=== PATIENT | male | born 1970 ===

== ENCOUNTER 2016-12-28 08:50 | Inpatient (IN) ==
--- NOTE | 2016-12-28 12:03 | Emergency Department Note ---
Arrival - Arrival Chief Complaint: Headache Stated Complaint: Neuro transfer ED Nursing Triage Note: Headache present for the past 4 days that has progressively gotten worse. Mode of Arrival: Stretcher Limitations: No Limitations Source: Patient Time Seen by Provider: 12/28/16 12:00 - History of Present Illness HPI Narrative: This 46-year-old Kay male presents on transfer from [facility] where he presented earlier this morning with a 3 day history of severe headache on the crown of the head. During his workup it flared it was found that he had a recent large right middle cerebral infarct as well as a recent right arielle infarct. The patient and the family both state he has not had any slurring of speech, focal deficits, vomiting, diaphoresis, shortness of breath, chest pain, or complaints of photophobia. He does complain of a low-grade nausea for the last 3 days. His most pressing complaint is again his headache, being otherwise medically stable. Onset (ago): day(s) Home Medications: Home Medications Medication Instructions Recorded Confirmed Type Lisinopril 20 mg PO BID 12/28/16 12/28/16 History amLODIPine [Norvasc] 5 mg PO DAILY 12/28/16 12/28/16 History metFORMIN [Glucophage] 500 mg PO DAILY 12/28/16 12/28/16 History Review of System - Review of System 12 point system: reviewed and no additional remarkable complaints except as stated - Review of System Constitutional: Present: as per HPI Respiratory: Present: as per HPI Cardiovascular: Present: as per HPI Gastrointestinal: Present: as per HPI Neurological: Present: as per HPI Medical,Surgical,& Family Hx - Medical History Cardio: History of: Hypertension Endocrine: History of: Diabetes Mellitus (NIDDM) - Surgical History Thoracic Surgeries: Patient denies;: Organ Transplant - Social History Smoking Status: Smoker, status unknown Frequency of Alcohol Use: None Type of Drug Use: None Exam Physical Examination: GENERAL: Well developed, well nourished male in no acute distress. HEENT: Normocephalic. No trauma. Moist mucous membranes. EOMI. PERRLA. ENT NML NECK: Supple. No adenopathy. CARDIAC: Regular. No murmurs. Heart rate 75 CHEST: Clear to auscultation. No respiratory distress. O2 sat 100% ABDOMEN: Soft. Nontender. Active bowel sounds. EXTREMITIES: No trauma. Normal ROM. No pedal edema. SKIN: No diaphoresis. No rash. NEURO: Alert. Oriented 3. Motor, sensory, vibratory intact. No focal deficits. Vital Signs: Vital Signs Temperature 98 F 12/28/16 09:00 Pulse Rate 67 12/28/16 11:08 Respiratory Rate 26 H 12/28/16 11:08 Blood Pressure 196/101 12/28/16 11:08 O2 Sat by Pulse Oximetry 100 12/28/16 11:08 Course - Reevaluation(s) Reevaluation #1: Discussed with patient need for hospitalization given his evidence of recent stroke - Consultations Consultation #1: Discussed with hospitalist service who will admit for further evaluation treatment. Disposition Clinical Impression: Acute right arterial ischemic stroke, middle cerebral artery (MCA), Right pontine stroke, Hypertension Case discussed with: patient, patient's family Disposition: Still a Patient Condition: Guarded Time of Disposition: 12:10
[2016-12-28] MEDS ORDERED: hydrALAZINE 20 MG/1 ML VIAL IV STA (12:07)
--- NOTE | 2016-12-28 12:25 | XRay Report ---
XR chest 1V portable Indication: SOB Comparison: Chest x-ray dated September 09, 2014 Technique: Single frontal view of the chest. Findings: The cardiomediastinal silhouette is stable in configuration. No focal consolidation, pleural effusion, or pneumothorax. Visualized osseous and surrounding soft tissue structures appear grossly unchanged. IMPRESSION: No acute cardiopulmonary process demonstrated. PROCEDURE INTERPRETED AT [facility] DEPARTMENT OF RADIOLOGY Final Report Signed by: Dr Fredrick Brown
--- NOTE | 2016-12-28 12:26 | Hospitalist History & Physical ---
Assessment and Plan - Time spent with patient Time spent with patient: Less than 30 minutes (1) Hypertension Status: Acute Assessment and plan: Grossly hypertensive at the time of admission; we will oral agents and manage. The patient has a known diagnosis; however reports medication non-compliance for the past two years. We will obtain echo and renal ultrasound to assess for target organ damage. (2) Diabetes mellitus Status: Acute Assessment and plan: Will obtain HGA1C and start accuchecks with ss coverage. (3) Acute right arterial ischemic stroke, middle cerebral artery (MCA) Status: Acute Assessment and plan: Will consult Neurology; perform full neuro work-up. Will order MRI. (4) Right pontine stroke Status: Acute Assessment and plan: Will consult Neurology; perform full neuro work-up. Will order MRI. (5) Acute kidney injury Status: Acute Assessment and plan: Creatinine 3.0 at the time of admission. I suspect that have some renal involvement due to his non-compliance with his HTN/DM. We will continue to monitor. Re-check labs in AM. History of Present Illness Chief complaint: CVA History of present illness: This is a very pleasant 46 year old male that presented to the ED at [facility] as a lateral transfer from [facility] for evaluation of confirmed cerebral vascular accident. The patient has a medical history significant for hypertension, diabetes, and hyperlipidemia. The patient has a surgical history of laser eye surgery. The patient reported gradual onset of a headache which started 3 days prior presentation. He reported that the headache started in the crown of his head and gradually worsened. He also reported intermittent nausea during this period. At [place], a full neurological work-up was ordered. CT Head revealed large middle right cerebral infarct as well as recent right arielle infarct. The patient was subsequently transferred to [facility] for further evaluation. Home Medications Medication Instructions Recorded Confirmed Type Lisinopril 20 mg PO BID 12/28/16 12/28/16 History amLODIPine [Norvasc] 5 mg PO DAILY 12/28/16 12/28/16 History metFORMIN [Glucophage] 500 mg PO DAILY 12/28/16 12/28/16 History Allergies Allergy/AdvReac Type Severity Reaction Status Date / Time No Known Allergies Allergy Unverified 12/28/16 12:35 Medical,Surgical,& Family Hx - Medical History Cardio: History of: Hypertension Endocrine: History of: Diabetes Mellitus (NIDDM) - Surgical History Thoracic Surgeries: Patient denies;: Organ Transplant - Social History Smoking Status: Former smoker Frequency of Alcohol Use: None Type of Drug Use: None Marital Status: Lives With:: Spouse Functional capacity: independent ambulation 12 point system: reviewed and no additional remarkable complaints except as stated Exam - Constitutional Vitals: Period Temp Pulse Resp BP Sys/Toscano Pulse Ox Last 24 Hr 98 F-98.0 F 67-75 18-26 196-220/101-114 100-100 General appearance: over weight - Head Head exam: Present: normal inspection, normocephalic, atraumatic - Eye Eye exam: Present: EOMI, conjunctival injection Pupils: Present: FAMILIA, normal accommodation - ENT ENT exam: Present: normal exam, normal external ear exam, normal oropharynx - Neck Neck exam: Present: normal inspection. Absent: lymphadenopathy, meningismus, tenderness, thyromegaly - Respiratory Respiratory exam: Present: clear to auscultation bilaterally. Absent: rales, rhonchi, stridor, wheezes - Cardiovascular Cardiovascular exam: Present: regular rate and rhythm. Absent: carotid bruit, diastolic murmur, gallop, JVD, rubs, systolic murmur - GI/Abdominal GI/Abdominal exam: Present: normal bowel sounds, soft - Extremities Exam Extremities exam: Present: normal inspection, full ROM. Absent: edema - Back Exam Back exam: Present: normal inspection - Neurological Exam Neurological exam: Present: alert, oriented X3, CN II-XII intact - Psychiatric Psychiatric exam: Present: normal affect, normal mood - Skin Skin exam: Present: normal color, warm, dry Results - Labs Lab Results: I have reviewed the past 24 hour labs Labs: Labs from [place] reviewed; Potassium of 2.9 and Creatinine of 3.1 Quality Measures - Stroke Onset of Symptoms Date: 12/24/16
[2016-12-28] MEDS ORDERED: hydrALAZINE 20 MG/1 ML VIAL ONE (12:29)
[2016-12-28] MEDS ORDERED: HYDROmorphone 2 MG/1 ML VIAL IV STA (12:35)
[2016-12-28] MEDS ORDERED: ONDANSETRON 4 MG/2 ML VIAL IV STA (12:36)
[2016-12-28] MEDS ORDERED: HYDROmorphone 2 MG/1 ML VIAL ONE (12:37)
[2016-12-28] MEDS ORDERED: ONDANSETRON 4 MG/2 ML VIAL ONE (12:37)
--- NOTE | 2016-12-28 12:40 | EKG Report ---
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
--- NOTE | 2016-12-28 13:23 | Ultrasound Report ---
US renal Bilateral Indication: Hypertension. Comparison: None. Technique: Multiple longitudinal and transverse real-time sonographic images of the kidneys are obtained. Findings: The right kidney measures 12.1 cm, and the left kidney measures 11.6 cm. There is no evidence of hydronephrosis. IMPRESSION: Unremarkable renal ultrasound. PROCEDURE INTERPRETED AT [facility] DEPARTMENT OF RADIOLOGY Final Report Signed by: Dr Fredrick Brown
[2016-12-28 13:34] LABS: PT Patient Result 10.3 SECS; Partial Thromboplastin Time 32.2 SECS (0-40)
[2016-12-28 13:44] LABS: Troponin I Only < 0.015 NG/ML (0.00-0.045)
[2016-12-28 13:45] LABS: CKMB % 3.5 %
[2016-12-28 13:54] LABS: Risk Ratio 8.74; VLDL CHOLESTEROL 55.6 MG/DL
[2016-12-28] MEDS ORDERED: hydrALAZINE 20 MG/1 ML VIAL IV PRN (14:53)
[2016-12-28] MEDS ORDERED: ONDANSETRON 4 MG/2 ML VIAL IV PRN (14:53)
[2016-12-28] MEDS ORDERED: DOCUSATE SODIUM 100 MG CAPSULE PO PRN (14:53)
[2016-12-28] MEDS ORDERED: LABETALOL 20 MG/4 ML SYRINGE IV PRN (14:53)
[2016-12-28] MEDS ORDERED: ZALEPLON 5 MG CAPSULE PO PRN (14:53)
[2016-12-28] MEDS ORDERED: GLUCAGON 1 MG VIAL IM PRN ×2 (14:53)
[2016-12-28] MEDS ORDERED: DEXTROSE 50% 25 GM/50 ML VIAL IV PRN ×2 (14:53)
[2016-12-28] MEDS ORDERED: PNEUMOCOCCAL VACCINE (23 VALENT) 0.5 ML VIAL IM ONE (15:11)
--- NOTE | 2016-12-28 15:59 | Ultrasound Report ---
US carotid duplex BI Indication: CVA. Comparison: None. Technique: Multiple longitudinal and transverse real-time sonographic images of the bilateral carotid arterial systems are obtained with grayscale, spectral, and color Doppler analysis. Findings: Peak systolic velocities within the right CCA, proximal ICA, and distal ICA are 67, 29, and 32 cm/s respectively. Peak systolic velocities within the left CCA, proximal ICA, and distal ICA are 87, 95, and 47 cm/s respectively. ICA/CCA ratios on the right and left are 0.5 and 1.1 respectively. Antegrade flow demonstrated within the bilateral vertebral arteries. Grayscale imaging demonstrates mild to moderate bilateral atherosclerotic plaque. IMPRESSION: No convincing sonographic evidence of significant (50% or greater) narrowing of either cervical internal carotid artery. Indirect NASCET criteria utilized. PROCEDURE INTERPRETED AT [facility] DEPARTMENT OF RADIOLOGY Final Report Signed by: Dr Fredrick Brown
--- NOTE | 2016-12-28 16:05 | XRay Report ---
XR skull <4V AP/LAT Indication: MRI clearance. Skull 3 views: Metallic surgical hardware lines the floor and medial wall of the left orbit and is of unknown composition. Metallic dentition is present as well. No other metallic foreign objects are seen. Impression: Strict contraindication to MRI with metallic hardware lining the floor of the left orbit and medial wall of unknown composition. Even if MR-compatible, suspect the degree of artifact will render MR brain severely degraded. PROCEDURE INTERPRETED AT [facility] DEPARTMENT OF RADIOLOGY Final Report Signed by: Vance Buckner M.D.
[2016-12-28] MEDS: INSULIN LISPRO 100 UNIT/ML SUBCUT SCH ×2 (16:15→21:17)
[2016-12-28] MEDS: ENOXAPARIN 30 MG/0.3 ML SYRINGE SUBCUT SCH (16:15)
--- NOTE | 2016-12-28 17:04 | ECHO Report ---
Raheem Campuzano 12/28/2016 Exam Date: 14:22 Referring Physician: Princess Yo Technologist: ANGEL Age: 46 Ht (in): 69 Wt (lb): 230 MExam Location: [facility] Gender: Echo [id number]: HTN, DM, Acute kidney injuryIndications: BP: 145 / 79 HR: 75 SinusRhythm: GoodTechnical Quality: IMPRESSIONS Left ventricular ejection fraction is estimated at 60 %. Moderate concentric left ventricular hypertrophy with grade I diastolic dysfunction. Tricuspid regurgitation velocities suggest a RVSP of 28 mmHg plus the right atrial pressure. MEASUREMENTS (Male / Female) Normal Values 2D ECHO LV Diastolic Diameter PLAX 4.9 cm 4.2 - 5.9 / 3.9 - 5.3 cm LV Systolic Diameter PLAX 2.9 cm LV Fractional Shortening PLAX 41.7 % IVS Diastolic Thickness 1.9 cm 0.6 - 1.0 / 0.6 - 0.9 cm LVPW Diastolic Thickness 1.5 cm 0.6 - 1.0 / 0.6 - 0.9 cm RV Internal Dim ED PLAX 3.1 cm Aortic Root Diameter 3.0 cm LA Systolic Diameter LX 3.8 cm 3.0 - 4.0 / 2.7 - 3.8 cm DOPPLER TR Peak Velocity 263.0 cm/s TR Peak Gradient 27.7 mmHg FINDINGS Left Ventricle Moderate concentric left ventricular hypertrophy with grade I diastolic dysfunction. Left ventricular ejection fraction is estimated at 60 %. Right Ventricle Normal right ventricular size and systolic function. Right Atrium Normal right atrial size. Left Atrium Normal left atrial size. Mitral Valve Mild mitral valve sclerosis. Mild mitral valve regurgitation. Aortic Valve Mild aortic valve sclerosis. Tricuspid Valve Morphologically normal tricuspid valve. [id number]-up-[id number] tricuspid valve regurgitation. Tricuspid regurgitation velocities suggest a RVSP of 28 mmHg plus the right atrial pressure. Pulmonic Valve Morphologically normal pulmonic valve. Trace pulmonary valve regurgitation. Pericardium No pericardial effusion. Aorta Normal size aortic root and proximal ascending aorta. Betty Butler (Electronically Signed) 28 Dec 2016 17:03Final Date:
[2016-12-28] MEDS: ATORVASTATIN 40 MG TABLET PO SCH (21:16)
[2016-12-28] MEDS: CARVEDILOL 3.125 MG TABLET PO SCH (21:17)
[2016-12-28] MEDS: ACETAMINOPHEN 325 MG TABLET PO PRN (21:17)
[2016-12-29] MEDS: ACETAMINOPHEN 325 MG TABLET PO PRN ×3 (04:28→19:24)
[2016-12-29 05:56] LABS: Calcium 6.9 MG/DL (8.5-10.1); Osmolality,Calculated 280.5 MOS/KG (273-304); Potassium 3.1 MMOL/L (3.5-5.1); Thyroid Stimulating Hormone 3.08 uIU/ml (0.358-3.74)
[2016-12-29] MEDS: INSULIN LISPRO 100 UNIT/ML SUBCUT SCH ×4 (07:19→20:40)
[2016-12-29] MEDS ORDERED: amLODIPine 2.5 MG TABLET PO SCH (09:00)
[2016-12-29] MEDS: CARVEDILOL 3.125 MG TABLET PO SCH (09:31)
[2016-12-29] MEDS: PANTOPRAZOLE 40 MG TABLET PO SCH (09:31)
[2016-12-29] MEDS ORDERED: POTASSIUM CHLORIDE 20 MEQ TABLET PO ONE (14:28)
[2016-12-29] MEDS ORDERED: LISINOPRIL 20 MG TABLET PO SCH (14:30)
[2016-12-29] MEDS ORDERED: metFORMIN 500 MG TABLET PO SCH (14:30)
[2016-12-29] MEDS ORDERED: amLODIPine 5 MG TABLET PO SCH (14:30)
--- NOTE | 2016-12-29 14:31 | Hospitalist Progress Note ---
Assessment and Plan (1) Acute right arterial ischemic stroke, middle cerebral artery (MCA) Status: Acute Assessment and plan: 1)stroke- subacute to chronic without need for rehab. Treat contributing diagnoses- increased Norvasc for HTN and started lipitor for cholesterol. on SSI for diabetes. begin asa. echo with EF 60% grade I diastolic dysfunction. Carotids ok. 2)LUCERO v CKD- BUN not elevated, may be more chronic. Recheck in am. IVF. 3)HTN 4)High cholesterol 5)DM- hgba1c is 7.7. no more metformin because his creatinine is too high. SSI. 6)low potassium- replace po. 7)hypocalcemia- check albumin. Current Visit: Yes (2) Hypercholesterolemia Status: Acute Current Visit: Yes (3) Hypertension Status: Acute Current Visit: Yes (4) Diabetes mellitus Status: Acute Current Visit: Yes (5) Acute kidney injury Status: Acute Current Visit: Yes Hospitalist: Subjective Interval history: Mr Campuzano is asking to be discharged. He does not have any neuro deficit. He had no idea he had had a stroke. He still has a dull headache. He is cooperating with Pt and has equal strength bilaterally in his extremities. He used to take meds for HTN and high cholesterol and diabetes. Exam - Constitutional Vitals: Period Temp Pulse Resp BP Sys/Toscano Pulse Ox Last 24 Hr 97.2 F-98.5 F 66-79 18-22 112-171/64-97 97-99 General appearance: no acute distress, over weight - Head Head exam: Present: normocephalic, atraumatic - Eye Eye exam: Present: EOMI. Absent: scleral icterus - Respiratory Respiratory exam: Present: clear to auscultation bilaterally - Cardiovascular Cardiovascular exam: Present: regular rate and rhythm - GI/Abdominal GI/Abdominal exam: Present: normal bowel sounds, soft. Absent: tenderness - Extremities Exam Extremities exam: Absent: edema Results - Labs CBC & BMP: 12/29/16 04:41 Lab Results: I have reviewed the past 24 hour labs (carotid dopplers- no sig stenosis; echo-EF 60% with grade 1 diastolic dysfunction) Quality Measures - Stroke Onset of Symptoms Date: 12/24/16
[2016-12-29] MEDS: amLODIPine 5 MG TABLET PO SCH (14:45)
[2016-12-29] MEDS: CARVEDILOL 12.5 MG TABLET PO SCH ×2 (14:48→20:39)
[2016-12-29] MEDS: ENOXAPARIN 30 MG/0.3 ML SYRINGE SUBCUT SCH (14:49)
--- NOTE | 2016-12-29 15:10 | Neurology Consult Note ---
History of Present Illness History of present illness: This is a 46 year old gentleman that presented to the ED at [facility] as a lateral transfer from [facility] for evaluation of confirmed cerebral vascular accident. The patient has a medical history significant for hypertension, diabetes, and hyperlipidemia. The patient has a surgical history of laser eye surgery. The patient reported gradual onset of a headache which started 3 days prior presentation. He reported that the headache started in the crown of his head and gradually worsened. He also reported intermittent nausea during this period. At [place], CT Head revealed large middle right cerebral infarct as well as recent right arielle infarct. The patient was subsequently transferred to [facility] for further evaluation. Do not have that report available. Carotid ultrasound is unremarkable. Echo showed ejection fraction of 60%. Cholesterol is 376, triglycerides are 278 Home Medications Medication Instructions Recorded Confirmed Type Lisinopril 20 mg PO BID 12/28/16 12/28/16 History amLODIPine [Norvasc] 5 mg PO DAILY 12/28/16 12/28/16 History metFORMIN [Glucophage] 500 mg PO DAILY 12/28/16 12/28/16 History Allergies Allergy/AdvReac Type Severity Reaction Status Date / Time No Known Allergies Allergy Unverified 12/28/16 12:35 12 point system: reviewed and no additional remarkable complaints except as stated Medical,Surgical,& Family Hx - Medical History Cardio: History of: Hypertension Endocrine: History of: Diabetes Mellitus (NIDDM) - Surgical History Cardiac Surgeries: Patient Denies: Cardiac Catheterization Thoracic Surgeries: Patient denies;: Organ Transplant - Social History Smoking Status: Former smoker Frequency of Alcohol Use: None Type of Drug Use: None Exam - Constitutional Vitals: Period Temp Pulse Resp BP Sys/Toscano Pulse Ox Last 24 Hr 97.3 F-98.5 F 66-79 18-22 112-171/64-96 97-99 Exam: GENERAL: Patient is in no acute distress. NECK: Neck is supple. There is no JVD. No carotid bruits present. No thyroid masses. CVS: First and second heart sounds are normal. There is no S3 present. Regular rate and rhythm. RESPIRATORY: Lungs are clear to auscultation without any rales or rhonchi. ABDOMEN: Soft and non-tender. Bowel sounds are present. There is no hepatosplenomegaly. EXT: There is no palpable edema. Peripheral pulses are present. Skin: No rashes Central Nervous system: General: Alert, awake and Oriented x 3 Speech: Fluent Comprehension: Intact and normal Facial expressions: Normal Cranial Nerves: CN1/Olfactory: Normal CN II/ Optic: Normal, Visual Acuña unreliable CN III, and : FAMILIA & EOMI CN V: Normal & intact CN VII: face is symmetric CNVIII: Normal CN XI/X/XI/XII: Intact and Normal Motor: Bulk and Tone is normal. Strength in the right 5/5 Strength in the left 5/5 Sensory: Decreased for all the modalities of PP, LT and temp sense Reflexes: 1+ and symmetrical Cerebellar function: Normal finger to nose and heel to castle testing. Toes: Equivocal Gait: Slightly broad-based gait but able to walk independently Results - Labs CBC & BMP: 12/29/16 04:41 Assessment and Plan (1) Headache Status: Acute Assessment and plan: Nonspecific. Patient does not have any more headaches. No more weakness reported. I do not believe he had a stroke. Neuro exam is negative. MRI cannot be done due to some metal behind the right eye. Start and continue aspirin a day Agree with Lipitor No further intervention needed from neuro standpoint Sign off please call as needed Current Visit: Yes
[2016-12-29] MEDS: ATORVASTATIN 40 MG TABLET PO SCH (20:40)
[2016-12-29 22:55] LABS: Protein/Creatinine Ratio,Urine 15.1 RATIO
[2016-12-30 04:58] LABS: Calcium 6.9 MG/DL (8.5-10.1); Osmolality,Calculated 283.5 MOS/KG (273-304); Potassium 3.3 MMOL/L (3.5-5.1)
[2016-12-30] MEDS: INSULIN LISPRO 100 UNIT/ML SUBCUT SCH ×4 (07:55→20:50)
[2016-12-30] MEDS ORDERED: POTASSIUM CHLORIDE 20 MEQ TABLET PO ONE (08:16)
[2016-12-30] MEDS: amLODIPine 5 MG TABLET PO SCH (08:58)
[2016-12-30] MEDS: PANTOPRAZOLE 40 MG TABLET PO SCH (08:58)
[2016-12-30] MEDS: CARVEDILOL 12.5 MG TABLET PO SCH ×2 (08:58→20:50)
[2016-12-30] MEDS: SODIUM CHLORIDE 0.45% 1,000 ML IV SCH ×3 (08:59→22:23)
[2016-12-30] MEDS: ACETAMINOPHEN 325 MG TABLET PO PRN (09:03)
--- NOTE | 2016-12-30 12:55 | Nephrology Consult Note ---
History of Present Illness Chief complaint: Increased BUN and creatinine History of present illness: Mr. Campuzano is a 46 year old male who was admitted on 12/28/2016 for headache. Patient was also noted to have an increased BUN and creatinine. He had a CT scan of his head that was noncontrasted that revealed a large stroke. The patient's creatinine on presentation was 3.1 mg/dL today it is up to 3.2 mg/dL the patient denies any history of kidney disease previously. The patient does have a long history of diabetes and hypertension. The patient also used to smoke cigarettes up until about a year ago. The patient does have a sister that is on dialysis. The patient states he did take some BC powder the day of his admission but was not taking any prior to that. He denies nonsteroidal anti -inflammatory medication use otherwise. The patient denies any problems with urinary flow he denies hesitancy he denies straining to urinate. ROS: Head -positive headaches ENT - denies sore throat Lymphatics - denies lymphadenopathy Hematology - denies bleeding problems Heart - denies chest pain Lungs - denies shortness of breath Abdomen - denies abdominal pain Musculoskeletal - denies arthritis Skin - denies rash Neurology - denies stroke General - denies fever PE: General: in no acute distress Eyes: Pupils are round and reactive, conjunctivae are clear ENT: Nose is clear, O/P is benign Neck: Supple, no thyromegaly Lymphatics: No cervical, supraclavicular or axillary adenopathy Heart: Regular rate and rhythm, no edema Lungs: Clear to auscultation anteriorly, chest expansion symmetric Abdomen: Soft, normoactive bowel sounds, no hepatomegaly Musculoskeletal: No joint erythema or effusions or joint asymmetry Skin: Normal turgor, normal hydration, no rash Neuro/Psych: Alert and cooperative with fair insight Home Medications Medication Instructions Recorded Confirmed Type Lisinopril 20 mg PO BID 12/28/16 12/28/16 History amLODIPine [Norvasc] 5 mg PO DAILY 12/28/16 12/28/16 History metFORMIN [Glucophage] 500 mg PO DAILY 12/28/16 12/28/16 History Allergies Allergy/AdvReac Type Severity Reaction Status Date / Time No Known Allergies Allergy Unverified 12/28/16 12:35 Medical,Surgical,& Family Hx - Medical History Cardio: History of: Hypertension Endocrine: History of: Diabetes Mellitus (NIDDM) - Surgical History Cardiac Surgeries: Patient Denies: Cardiac Catheterization Thoracic Surgeries: Patient denies;: Organ Transplant - Family History Family History: Reports;: Family Diabetes, Family Hypertension - Social History Smoking Status: Former smoker Frequency of Alcohol Use: None Type of Drug Use: None Exam - Vital Signs Vital signs: Period Temp Pulse Resp BP Sys/Toscano Pulse Ox Last 24 Hr 97.5 F-98.2 F 63-69 16-20 106-175/56-97 97-100 Results - Labs CBC & BMP: 12/30/16 04:01 Assessment and Plan (1) Kidney failure Status: Acute Assessment and plan: This patient presented with a creatinine of 3.1 mg/dL. His creatinine 2 years ago was 0.9 mg/dL. I do not know what his baseline is. We will request some records from [facility] to see what his most recent creatinine was. The patient's renal ultrasound was unremarkable. I would suspect this patient has some chronic kidney disease from his diabetes and hypertension. I do not think a single dose of a BC powder would have caused some acute injury like this , the patient did not have any contrast given during his CT scan. I will check a urinalysis. His urine protein to creatinine ratio was unremarkable. We will check a fractional excretion of sodium and urea nitrogen. Current Visit: Yes (2) Diabetes mellitus Status: Acute Current Visit: Yes (3) Hypertension Status: Acute Current Visit: Yes (4) Right pontine stroke Status: Acute Current Visit: Yes
[2016-12-30] MEDS: ENOXAPARIN 30 MG/0.3 ML SYRINGE SUBCUT SCH (16:00)
--- NOTE | 2016-12-30 17:07 | Hospitalist Progress Note ---
Assessment and Plan (1) Acute right arterial ischemic stroke, middle cerebral artery (MCA) Status: Acute Assessment and plan: 1)stroke-ruled out. Treat risk factors- Norvasc for HTN and started lipitor for cholesterol. on SSI for diabetes. begin asa. echo with EF 60% grade I diastolic dysfunction. Carotids ok. 2)LUCERO v CKD- BUN not elevated, may be more chronic. Dr Castillo evaluating. 3)HTN 4)High cholesterol 5)DM- hgba1c is 7.7. no more metformin because his creatinine is too high. SSI. likely home on orals. 6)low potassium- replaced. 7)home soon. Current Visit: Yes (2) Hypercholesterolemia Status: Acute Current Visit: Yes (3) Hypertension Status: Acute Current Visit: Yes (4) Diabetes mellitus Status: Acute Current Visit: Yes (5) Acute kidney injury Status: Acute Current Visit: Yes Hospitalist: Subjective Interval history: Mr Campuzano is feeling this morning when I saw him. He has mild headache relieved with tylenol. Dr Barr does not think he had an acute stroke. Dr meyers seeing him and some of the urine tests are pending. Renal US unremakable. Exam - Constitutional Vitals: Period Temp Pulse Resp BP Sys/Toscano Pulse Ox Last 24 Hr 97.2 F-98.2 F 63-69 16-20 106-154/56-85 97-100 General appearance: no acute distress, over weight - Eye Eye exam: Present: EOMI. Absent: scleral icterus - Respiratory Respiratory exam: Present: clear to auscultation bilaterally - Cardiovascular Cardiovascular exam: Present: regular rate and rhythm - GI/Abdominal GI/Abdominal exam: Present: normal bowel sounds, soft. Absent: tenderness - Extremities Exam Extremities exam: Absent: edema Results - Labs CBC & BMP: 12/30/16 04:01 Lab Results: I have reviewed the past 24 hour labs Quality Measures - Stroke Onset of Symptoms Date: 12/24/16
[2016-12-30] MEDS: ATORVASTATIN 40 MG TABLET PO SCH (20:50)
[2016-12-31 03:16] LABS: Apearance,Urine Slightly Hazy (Clear); Bacteria,Urine Occasional /HPF (Few); Bilirubin,Urine Negative (Negative); Blood, Urine Negative (Negative); Glucose,Urine (UA) >=500 mg/dL (Negative); Ketones,Urine Negative (Negative); Mucus,Urine Occasional /LPF (Occasional); Nitrite,Urine Negative (Negative); Protein,Urine >=500 MG/DL; RBC,Urine 1 /HPF (0-4); Renal Epithelial Cells,Urine Occasional /HPF (<1); Squamous Epithelial Cell,Urine Occasional /HPF (0-10); Urine Color Yellow (Yellow); Urine Specific Gravity 1.013 (1.001-1.035); Urine Urobilinogen < 2.0 EU/DL (0.2-1.0); WBC,Urine 3 /HPF (0-6)
[2016-12-31] MEDS: SODIUM CHLORIDE 0.45% 1,000 ML IV SCH (04:50)
[2016-12-31 05:30] LABS: Osmolality,Calculated 279.8 MOS/KG (273-304); Potassium 3.9 MMOL/L (3.5-5.1)
[2016-12-31] MEDS: INSULIN LISPRO 100 UNIT/ML SUBCUT SCH ×2 (07:55→12:02)
[2016-12-31] MEDS: PANTOPRAZOLE 40 MG TABLET PO SCH (08:15)
[2016-12-31] MEDS: CARVEDILOL 12.5 MG TABLET PO SCH (08:15)
[2016-12-31] MEDS: amLODIPine 5 MG TABLET PO SCH (08:15)
--- NOTE | 2016-12-31 09:35 | Nephrology Progress Note ---
Nephrology - PN: Subj Interval history: Patient denies shortness of breath. Review of systems GI denies nausea or vomiting, general he feels better, his headache is better, skin-patient is asking why he gets blisters on the posterior aspect of his calf sometimes. Physical exam general the patient is in no acute distress, he has 1-2+ pretibial edema, he has no blisters behind his calves presently Assessment/plan 1. Chronic kidney disease stage IV-patient's creatinine is stable at 3.2 mg/dL, his urinalysis was unremarkable his protein leakage is in the normal range his fractional excretion of sodium would suggest a prerenal state however his fractional excretion of urea nitrogen is post renal, his renal ultrasound was unremarkable. I think we are probably dealing with chronic kidney disease I do not feel any further workup is indicated at this time. I will see him back in a couple weeks and recheck his creatinine at that time 2. Diabetes mellitus 3. Hypertension 4. Headache this is resolved 5. Volume overload-this patient has some mild to moderate lower extremity edema , I went over a low sodium diet with the patient, I suspect the blisters he complains of in his calves are related to his volume overload. I am going to stop his IV fluids, they seem to have helped his headache but at this point they have really not done much for his kidneys. Exam (PN)-Nephrology - Vital Signs Vital signs: Period Temp Pulse Resp BP Sys/Toscano Pulse Ox Last 24 Hr 97.1 F-97.9 F 56-69 18-20 114-154/67-87 95-99 - Lab 12/31/16 04:24 Most recent lab results Calcium 7.0 MG/DL (8.5-10.1) L 12/31/16 04:24 Assessment and Plan (1) Kidney failure Status: Acute Assessment and plan: This patient presented with a creatinine of 3.1 mg/dL. His creatinine 2 years ago was 0.9 mg/dL. I do not know what his baseline is. We will request some records from [facility] to see what his most recent creatinine was. The patient's renal ultrasound was unremarkable. I would suspect this patient has some chronic kidney disease from his diabetes and hypertension. I do not think a single dose of a BC powder would have caused some acute injury like this , the patient did not have any contrast given during his CT scan. I will check a urinalysis. His urine protein to creatinine ratio was unremarkable. We will check a fractional excretion of sodium and urea nitrogen. Current Visit: Yes (2) Diabetes mellitus Status: Acute Current Visit: Yes (3) Hypertension Status: Acute Current Visit: Yes (4) Right pontine stroke Status: Acute Current Visit: Yes
--- NOTE | 2016-12-31 10:47 | Discharge Summary ---
Hospital Course - Hospital Course Hospital Course: Mr Campuzano was sent for suspicion of stroke on CT scan. He was seen by Dr Barr who says he did not have a stroke as he never had any neuro deficits. His carotid dopplers were unremarkable, echo looked ok. He was counselled to begin taking meds for his longstanding HTN and DM again- he had stopped them when he ran out a while ago. He also is given a new prescription for hypercholesterolemia. He can no longer take metoformin or lisinopril because of his renal failure. He will be on 2mg glimepiride each morning and keep careful watch on his blood sugars which were in the 120-255 range here. He has developed CKD since he was last seen here with Creatinine of 3.2. HE was seen by Dr Castillo who will see him in his clinic. I have discussed his case with Dr Castillo today. He will see him in the clinic. HE will see his PCP at [facility]. - Time spent with patient Time with patient DS: Greater than 30 minutes (coordination of care, medicine reconciliation, documentation.) Diagnosis - Discharge Diagnosis (1) Acute right arterial ischemic stroke, middle cerebral artery (MCA) Status: Ruled-out (2) Hypercholesterolemia Status: Chronic (3) Hypertension Status: Chronic (4) Diabetes mellitus Status: Chronic (5) Acute kidney injury Status: Ruled-out (6) CKD (chronic kidney disease) stage 4, GFR 15-29 ml/min Status: Chronic Specialty Discharge - Follow Up or Referrals Follow up with: Kenny Mckeon MD [Physician] - 3 Days Andrew Barr MD [Physician] - 1 Month Vance Castillo MD [Physician] - 2 Weeks Discharge Plan - Discharge Data Disposition: Disch To Home/Self Care Condition at Discharge: Stable Discharge Diet: diabetic diet, heart healthy Activity: resume usual activities as tolerated - Discharge Medications New Atorvastatin [Lipitor] 80 mg PO BEDTIME #30 tablet Carvedilol [Coreg] 12.5 mg PO BID #60 tablet amLODIPine [Norvasc] 10 mg PO DAILY #30 tablet Glimepiride 2 mg PO AC BREAKFAST #30 tablet Discontinued metFORMIN [Glucophage] 500 mg PO DAILY Lisinopril 20 mg PO BID No Action amLODIPine [Norvasc] 5 mg PO DAILY - Follow Up or Referral Follow Up: Andrew Barr MD [Physician] - 1 Month [facility],MD Kenny [Physician] - 3 Days JonathanVance hartley MD [Physician] - 2 Weeks - Forms/Instructions Exam - Constitutional Vitals: Period Temp Pulse Resp BP Sys/Toscano Pulse Ox Last 24 Hr 97.1 F-97.9 F 56-69 18-20 114-154/67-87 95-99 General appearance: normal weight, no acute distress - Head Head exam: Present: normocephalic, atraumatic - Eye Eye exam: Present: EOMI. Absent: scleral icterus - Respiratory Respiratory exam: Present: clear to auscultation bilaterally - Cardiovascular Cardiovascular exam: Present: regular rate and rhythm - GI/Abdominal GI/Abdominal exam: Present: normal bowel sounds, soft. Absent: tenderness - Extremities Exam Extremities exam: Absent: edema - Neurological Exam Neurological exam: Present: alert, oriented X3, normal gait, CN II-XII intact, reflexes normal. Absent: motor sensory deficit Discharge Results Labs on day of discharge: Labs from last 24 hours 12/31/16 12/31/16 12/31/16 07:45 04:24 03:00 Sodium 137 Potassium 3.9 Chloride 107 Carbon Dioxide 19 L Anion Gap 14.9 BUN 30 H Creatinine 3.20 H GFR Calculation 28 BUN/Creatinine Ratio 9.00 Glucose 121 H POC Glucose 113 H Calculated Osmolality 279.8 Calcium 7.0 L Urine Color Yellow Urine Appearance Slightly hazy Urine pH 6.0 Ur Specific Orange 1.013 Urine Protein >=500 Urine Glucose (UA) >=500 Urine Ketones Negative Urine Blood Negative Urine Nitrate Negative Urine Bilirubin Negative Urine Urobilinogen < 2.0 H Urine Leukocytes Negative Urine RBC 1 Urine WBC 3 Ur Squamous Epith Cells Occasional Ur Renal Epithelial Cell Occasional Urine Bacteria Occasional Urine Mucus Occasional Ur Culture Indicated? Not indicated Ur Random Creatinine Ur Random Sodium Ur Random Urea Nitrogn 12/31/16 12/31/16 12/31/16 03:00 03:00 03:00 Sodium Potassium Chloride Carbon Dioxide Anion Gap BUN Creatinine GFR Calculation BUN/Creatinine Ratio Glucose POC Glucose Calculated Osmolality Calcium Urine Color Urine Appearance Urine pH Ur Specific Orange Urine Protein Urine Glucose (UA) Urine Ketones Urine Blood Urine Nitrate Urine Bilirubin Urine Urobilinogen Urine Leukocytes Urine RBC Urine WBC Ur Squamous Epith Cells Ur Renal Epithelial Cell Urine Bacteria Urine Mucus Ur Culture Indicated? Ur Random Creatinine 75 Ur Random Sodium 23.0 Ur Random Urea Nitrogn 323 12/30/16 12/30/16 12/30/16 20:44 15:36 11:34 Sodium Potassium Chloride Carbon Dioxide Anion Gap BUN Creatinine GFR Calculation BUN/Creatinine Ratio Glucose POC Glucose 227 H 179 H 147 H Calculated Osmolality Calcium Urine Color Urine Appearance Urine pH Ur Specific Orange Urine Protein Urine Glucose (UA) Urine Ketones Urine Blood Urine Nitrate Urine Bilirubin Urine Urobilinogen Urine Leukocytes Urine RBC Urine WBC Ur Squamous Epith Cells Ur Renal Epithelial Cell Urine Bacteria Urine Mucus Ur Culture Indicated? Ur Random Creatinine Ur Random Sodium Ur Random Urea Nitrogn DS: Provider Date of admission: 12/28/16 12:15 Primary care physician: Nonstaff Physician Attending physician on admission: Santiago Vargas MD Consults: 12/28/16 14:53 Consult to Case Mgmt/Social Srvs [CONS] Routine Reason for Case Mgmt/Social Srvs: Discharge Planning Consult to Occupational Therapy [CONS] Routine Reason for Occupational Therapy: Evaluate and Treat Consult Comment: Stroke Consult to Physical Therapy [CONS] Routine Reason for Physical Therapy: Evaluate and Treat Consult Comment: stroke Consult to Physician [CONS] Routine Comment: Consulting Provider: Andrew Barr When should Consulting Provider be notified: Now Person Notified: MIKE Date Notified: 12/28/16 Time Notified: 16:40 12/30/16 08:16 Consult to Physician [CONS] Routine Comment: CKD Consulting Provider: Vance Castillo Consult to Specialist Group: Nephrology Person Notified: JUAN CARLOS Date Notified: 12/30/16 Time Notified: 08:25 12/30/16 10:47 Consult to Diabetes Center, Educator [CONS] Routine Reason for Forestry Faculty Member: Diabetes Education Diet Discharging clinician: Emili Nobles MD
[2016-12-31 11:52] VITALS: BP 130/81
== END 2016-12-31 13:30 | disposition home or self-care (01) | DRG 103 ==
LOC: EDBD → EDUNIT# → N.ED 08:50 → SUATTDRO 12:15 → N.EDINP 12:15 → N.TELEN 14:38
PROVIDERS: ADMIT Family Medicine; ATTEND Internal Medicine

== ENCOUNTER 2017-10-19 22:29 | Inpatient (IN) ==
[2017-10-19] MEDS ORDERED: ALBUTEROL/IPRATROPIUM 3 ML NEB RESP TX STA (23:01)
[2017-10-19] MEDS ORDERED: FUROSEMIDE 100 MG/10 ML VIAL IV STA (23:01)
[2017-10-19] MEDS ORDERED: FUROSEMIDE 100 MG/10 ML VIAL ONE (23:07)
[2017-10-20 00:05] LABS: CKMB % 3.4 %; Troponin I Only < 0.015 NG/ML (0.00-0.045)
[2017-10-20] MEDS ORDERED: ONDANSETRON 4 MG/2 ML VIAL IV PRN (01:38)
[2017-10-20] MEDS ORDERED: DEXTROSE 50% 25 GM/50 ML VIAL IV ONE (06:14)
[2017-10-20 06:18] LABS: Basophils % 0.4 % (0.0-0.8); Eosinophils # 0.2 10*3/uL (0.0-0.87); Eosinophils % 3.8 % (0.00-10.9); Hematocrit 20.2 VOL% (42.0-52.0); Hemoglobin 6.5 GM/DL (14.0-18.0); Immature Granulocytes % 0.7 %; Immature Granulocytes Absolute 0.04 #; Lymphocytes # 1.2 10*3/uL (1.4-4.0); Lymphocytes % 22.4 % (21.2-54.2); Mean Corpuscular HGB Conc 32.2 GM/DL (32-36); Mean Corpuscular Hemoglobin 30 PG (27-34); Mean Corpuscular Volume 93.5 FL (87-102); Monocytes # 0.9 10*3/uL (0.11-0.8); Monocytes % 15.5 % (1.7-12.7); Neutrophils # 3.1 10*3/uL (1.4-7.4); Neutrophils % 57.2 % (38.7-73.9); Platelet Count 177 T/CUMM (130-400); Red Blood Count 2.16 MC/CUMM (3.8-5.5); Red Cell Distribution Width 16.3 % (9.3-17.3); White Blood Count 5.5 T/CUMM (4-12)
[2017-10-20] MEDS ORDERED: GLUCAGON 1 MG VIAL IM PRN (06:22)
[2017-10-20] MEDS ORDERED: DEXTROSE 50% 25 GM/50 ML VIAL IV PRN (06:22)
[2017-10-20 06:33] LABS: Calcium 7.5 MG/DL (8.5-10.1); Osmolality,Calculated 277.8 MOS/KG (273-304); Potassium 3.7 MMOL/L (3.5-5.1); Thyroid Stimulating Hormone 1.59 uIU/ml (0.358-3.74)
[2017-10-20] MEDS ORDERED: ERGOCALCIFEROL 50,000 UNIT CAPSULE PO SCH (07:00)
[2017-10-20] MEDS: amLODIPine 5 MG TABLET PO SCH (09:31)
[2017-10-20] MEDS: CALCIUM ACETATE 667 MG CAPSULE PO SCH ×3 (09:31→17:39)
[2017-10-20] MEDS: CARVEDILOL 25 MG TABLET PO SCH ×2 (09:31→17:39)
[2017-10-20] MEDS: ISOSORBIDE DINITRATE 20 MG TABLET PO SCH ×3 (09:31→21:05)
[2017-10-20] MEDS: INSULIN LISPRO 100 UNIT/ML SUBCUT SCH ×4 (09:31→23:17)
[2017-10-20] MEDS: LISINOPRIL 5 MG TABLET PO SCH (09:31)
[2017-10-20] MEDS: ASPIRIN EC 81 MG TABLET PO SCH (09:31)
[2017-10-20] MEDS ORDERED: SODIUM CHLORIDE 0.9% 1,000 ML IV PRN (15:46)
[2017-10-20] MEDS ORDERED: EPOETIN ALFA 10,000 UNIT/1 ML VIAL IV PRN (16:50)
[2017-10-20] MEDS: CALCITRIOL 0.25 MCG CAPSULE PO SCH (17:42)
[2017-10-20] MEDS ORDERED: AMITRIPTYLINE 50 MG TABLET PO SCH (21:00)
[2017-10-20] MEDS: FAMOTIDINE 20 MG TABLET PO SCH (21:05)
[2017-10-20] MEDS: ATORVASTATIN 10 MG TABLET PO SCH (21:05)
[2017-10-21 06:00] LABS: Basophils % 0.3 % (0.0-0.8); Eosinophils # 0.2 10*3/uL (0.0-0.87); Eosinophils % 3.1 % (0.00-10.9); Hematocrit 21.7 VOL% (42.0-52.0); Hemoglobin 6.7 GM/DL (14.0-18.0); Immature Granulocytes % 0.3 %; Immature Granulocytes Absolute 0.02 #; Lymphocytes # 1.3 10*3/uL (1.4-4.0); Lymphocytes % 22.7 % (21.2-54.2); Mean Corpuscular HGB Conc 30.9 GM/DL (32-36); Mean Corpuscular Hemoglobin 30 PG (27-34); Mean Corpuscular Volume 96.9 FL (87-102); Mean Platelet Volume 11.3 FL (9.6-12.0); Monocytes # 0.8 10*3/uL (0.11-0.8); Monocytes % 14.6 % (1.7-12.7); Neutrophils # 3.4 10*3/uL (1.4-7.4); Platelet Count 176 T/CUMM (130-400); Red Blood Count 2.24 MC/CUMM (3.8-5.5); Red Cell Distribution Width 16.3 % (9.3-17.3); White Blood Count 5.8 T/CUMM (4-12)
[2017-10-21 06:31] LABS: Calcium 7.6 MG/DL (8.5-10.1); Osmolality,Calculated 275.1 MOS/KG (273-304); Potassium 4.3 MMOL/L (3.5-5.1)
[2017-10-21] MEDS: INSULIN LISPRO 100 UNIT/ML SUBCUT SCH ×4 (08:20→20:12)
[2017-10-21] MEDS: ISOSORBIDE DINITRATE 20 MG TABLET PO SCH ×3 (09:18→20:53)
[2017-10-21] MEDS: CALCIUM ACETATE 667 MG CAPSULE PO SCH ×4 (09:18→16:00)
[2017-10-21] MEDS: CALCITRIOL 0.25 MCG CAPSULE PO SCH (09:18)
[2017-10-21] MEDS: CARVEDILOL 25 MG TABLET PO SCH ×3 (09:18→16:00)
[2017-10-21] MEDS: amLODIPine 5 MG TABLET PO SCH (09:19)
[2017-10-21] MEDS: ASPIRIN EC 81 MG TABLET PO SCH (09:19)
[2017-10-21] MEDS: LISINOPRIL 5 MG TABLET PO SCH (09:19)
[2017-10-21] MEDS ORDERED: EPOETIN ALFA 10,000 UNIT/1 ML VIAL IV SCH (11:30)
[2017-10-21] MEDS ORDERED: EPOETIN ALFA 10,000 UNIT/1 ML VIAL IV ONE (11:30)
[2017-10-21] MEDS: ATORVASTATIN 10 MG TABLET PO SCH (20:53)
[2017-10-21] MEDS: FAMOTIDINE 20 MG TABLET PO SCH (20:53)
[2017-10-22 06:49] LABS: Risk Ratio 2.1
[2017-10-22 07:09] LABS: Hematocrit 27.2 VOL% (42.0-52.0)
[2017-10-22 07:13] LABS: Hemoglobin 8.7 GM/DL (14.0-18.0)
[2017-10-22] MEDS: INSULIN LISPRO 100 UNIT/ML SUBCUT SCH ×4 (10:05→21:34)
[2017-10-22] MEDS: CALCIUM ACETATE 667 MG CAPSULE PO SCH ×3 (10:05→17:19)
[2017-10-22] MEDS: ISOSORBIDE DINITRATE 20 MG TABLET PO SCH ×3 (10:05→21:34)
[2017-10-22] MEDS: CALCITRIOL 0.25 MCG CAPSULE PO SCH (10:06)
[2017-10-22] MEDS: CARVEDILOL 25 MG TABLET PO SCH ×2 (10:06→17:19)
[2017-10-22] MEDS: amLODIPine 5 MG TABLET PO SCH (10:06)
[2017-10-22] MEDS: LISINOPRIL 5 MG TABLET PO SCH (10:06)
[2017-10-22] MEDS: ASPIRIN EC 81 MG TABLET PO SCH (10:06)
[2017-10-22] MEDS: ATORVASTATIN 10 MG TABLET PO SCH (21:34)
[2017-10-22] MEDS: FAMOTIDINE 20 MG TABLET PO SCH (21:34)
[2017-10-23 08:34] VITALS: BP 162/86
[2017-10-23] MEDS: INSULIN LISPRO 100 UNIT/ML SUBCUT SCH ×2 (08:34→11:34)
[2017-10-23] MEDS: LISINOPRIL 5 MG TABLET PO SCH (09:59)
[2017-10-23] MEDS: amLODIPine 5 MG TABLET PO SCH (09:59)
[2017-10-23] MEDS: CARVEDILOL 25 MG TABLET PO SCH (09:59)
[2017-10-23] MEDS: ISOSORBIDE DINITRATE 20 MG TABLET PO SCH (09:59)
[2017-10-23] MEDS: CALCITRIOL 0.25 MCG CAPSULE PO SCH (09:59)
[2017-10-23] MEDS: ASPIRIN EC 81 MG TABLET PO SCH (10:00)
[2017-10-23] MEDS: CALCIUM ACETATE 667 MG CAPSULE PO SCH ×2 (10:00→11:37)
== END 2017-10-23 13:35 | disposition home or self-care (01) | DRG 425 ==
LOC: EDUNIT# → EDBD → N.EDINP 22:29 → N.ED 22:29 → SUATTDRO 10-20 01:38 → N.TELES 10-20 02:34 → SUATTDRO 10-21 10:24 → UNDODISIN 10-23 08:59
PROVIDERS: ADMIT Internal Medicine; ATTEND Hospitalist

== ENCOUNTER 2017-10-26 02:51 | Inpatient (IN) ==
[2017-10-26] MEDS ORDERED: MORPHINE 2 MG/1 ML SYRINGE IV PRN (05:13)
[2017-10-26] MEDS ORDERED: ONDANSETRON 4 MG/2 ML VIAL IV PRN (05:13)
[2017-10-26] MEDS ORDERED: GLUCAGON 1 MG VIAL IM PRN (05:13)
[2017-10-26] MEDS ORDERED: ACETAMINOPHEN 325 MG TABLET PO PRN (05:13)
[2017-10-26] MEDS ORDERED: ALBUTEROL 1.25 MG/3 ML NEB RESP TX PRN (05:28)
[2017-10-26] MEDS ORDERED: cefTRIAXone 1,000 MG in SYRINGE 1 EACH IV SCH (05:30)
[2017-10-26] MEDS: INSULIN LISPRO 100 UNIT/ML SUBCUT SCH ×8 (06:13→22:13)
[2017-10-26] MEDS: DEXTROSE 50% 25 GM/50 ML VIAL IV PRN ×3 (06:14→15:02)
[2017-10-26 06:19] LABS: Basophils % 0.8 % (0.0-0.8); Eosinophils # 0.1 10*3/uL (0.0-0.87); Eosinophils % 2.2 % (0.00-10.9); Hematocrit 29.7 VOL% (42.0-52.0); Hemoglobin 9.3 GM/DL (14.0-18.0); Immature Granulocytes % 0.4 %; Immature Granulocytes Absolute 0.02 #; Lymphocytes % 19.4 % (21.2-54.2); Mean Corpuscular HGB Conc 31.3 GM/DL (32-36); Mean Corpuscular Hemoglobin 30 PG (27-34); Mean Corpuscular Volume 95.2 FL (87-102); Mean Platelet Volume 10.7 FL (9.6-12.0); Monocytes # 0.8 10*3/uL (0.11-0.8); Monocytes % 15.4 % (1.7-12.7); Neutrophils # 3.1 10*3/uL (1.4-7.4); Neutrophils % 61.8 % (38.7-73.9); Platelet Count 210 T/CUMM (130-400); Red Blood Count 3.12 MC/CUMM (3.8-5.5); White Blood Count 5.1 T/CUMM (4-12)
[2017-10-26 07:00] LABS: Albumin 2.6 G/DL (3.4-5.0); Bilirubin,Total 1.1 MG/DL (0.2-1.0); Calcium 7.6 MG/DL (8.5-10.1); Osmolality,Calculated 288.4 MOS/KG (273-304); Total Protein 6.4 G/DL (6.4-8.3)
[2017-10-26] MEDS: ALBUTEROL/IPRATROPIUM 3 ML NEB RESP TX SCH ×3 (07:48→19:28)
[2017-10-26] MEDS: AZITHROMYCIN INJ 500 MG in SODIUM CHLORIDE 0.9% 250 ML IV SCH (08:49)
[2017-10-26] MEDS: PANTOPRAZOLE 40 MG TABLET PO SCH (08:49)
[2017-10-26] MEDS: ASPIRIN EC 81 MG TABLET PO SCH (12:22)
[2017-10-26] MEDS: LISINOPRIL 5 MG TABLET PO SCH (12:22)
[2017-10-26] MEDS: amLODIPine 5 MG TABLET PO SCH (12:22)
[2017-10-26] MEDS: CALCIUM ACETATE 667 MG CAPSULE PO SCH ×2 (12:22→16:42)
[2017-10-26] MEDS ORDERED: EPOETIN ALFA 2,000 UNIT/1 ML VIAL IV PRN (12:47)
[2017-10-26] MEDS: ISOSORBIDE DINITRATE 20 MG TABLET PO SCH ×2 (16:42→22:14)
[2017-10-26] MEDS: CARVEDILOL 25 MG TABLET PO SCH (16:42)
[2017-10-26] MEDS: ATORVASTATIN 10 MG TABLET PO SCH (22:14)
[2017-10-26] MEDS: AMITRIPTYLINE 25 MG TABLET PO SCH (22:15)
[2017-10-26] MEDS: cefTRIAXone 1,000 MG in SYRINGE 1 EACH IV SCH (22:16)
[2017-10-27] MEDS: INSULIN LISPRO 100 UNIT/ML SUBCUT SCH ×12 (00:52→21:57)
[2017-10-27] MEDS: ALBUTEROL/IPRATROPIUM 3 ML NEB RESP TX SCH ×4 (01:20→19:03)
[2017-10-27] MEDS: AZITHROMYCIN INJ 500 MG in SODIUM CHLORIDE 0.9% 250 ML IV SCH (07:05)
[2017-10-27] MEDS: ISOSORBIDE DINITRATE 20 MG TABLET PO SCH ×3 (08:33→21:52)
[2017-10-27] MEDS: CARVEDILOL 25 MG TABLET PO SCH ×2 (08:33→16:17)
[2017-10-27] MEDS: PANTOPRAZOLE 40 MG TABLET PO SCH (08:33)
[2017-10-27] MEDS: CALCIUM ACETATE 667 MG CAPSULE PO SCH ×3 (08:33→16:17)
[2017-10-27] MEDS: amLODIPine 5 MG TABLET PO SCH (08:33)
[2017-10-27] MEDS: ASPIRIN EC 81 MG TABLET PO SCH (08:33)
[2017-10-27] MEDS: LISINOPRIL 5 MG TABLET PO SCH (08:33)
[2017-10-27] MEDS: CALCITRIOL 0.25 MCG CAPSULE PO SCH (08:33)
[2017-10-27] MEDS: cefTRIAXone 1,000 MG in SYRINGE 1 EACH IV SCH ×2 (10:29→21:52)
[2017-10-27] MEDS: ATORVASTATIN 10 MG TABLET PO SCH (21:51)
[2017-10-27] MEDS: AMITRIPTYLINE 25 MG TABLET PO SCH (21:52)
[2017-10-28] MEDS: INSULIN LISPRO 100 UNIT/ML SUBCUT SCH ×8 (00:32→14:12)
[2017-10-28 06:29] LABS: Basophils % 0.6 % (0.0-0.8); Eosinophils # 0.2 10*3/uL (0.0-0.87); Eosinophils % 3.3 % (0.00-10.9); Hematocrit 26.4 VOL% (42.0-52.0); Hemoglobin 8.5 GM/DL (14.0-18.0); Immature Granulocytes % 0.4 %; Immature Granulocytes Absolute 0.02 #; Lymphocytes # 1.3 10*3/uL (1.4-4.0); Lymphocytes % 24.2 % (21.2-54.2); Mean Corpuscular HGB Conc 32.2 GM/DL (32-36); Mean Corpuscular Hemoglobin 30 PG (27-34); Mean Corpuscular Volume 92.6 FL (87-102); Mean Platelet Volume 10.2 FL (9.6-12.0); Monocytes # 0.8 10*3/uL (0.11-0.8); Monocytes % 14.2 % (1.7-12.7); Neutrophils # 3.1 10*3/uL (1.4-7.4); Neutrophils % 57.3 % (38.7-73.9); Platelet Count 197 T/CUMM (130-400); Red Blood Count 2.85 MC/CUMM (3.8-5.5); Red Cell Distribution Width 15.8 % (9.3-17.3); White Blood Count 5.4 T/CUMM (4-12)
[2017-10-28 07:10] LABS: Albumin 2.4 G/DL (3.4-5.0); Bilirubin,Total 0.5 MG/DL (0.2-1.0); Calcium 7.3 MG/DL (8.5-10.1); Osmolality,Calculated 284.8 MOS/KG (273-304); Potassium 4.8 MMOL/L (3.5-5.1); Total Protein 6.4 G/DL (6.4-8.3)
[2017-10-28] MEDS: ALBUTEROL/IPRATROPIUM 3 ML NEB RESP TX SCH ×2 (08:14)
[2017-10-28] MEDS: CALCITRIOL 0.25 MCG CAPSULE PO SCH (11:08)
[2017-10-28] MEDS: CARVEDILOL 25 MG TABLET PO SCH (11:08)
[2017-10-28] MEDS: ISOSORBIDE DINITRATE 20 MG TABLET PO SCH (11:08)
[2017-10-28] MEDS: CALCIUM ACETATE 667 MG CAPSULE PO SCH ×2 (11:08)
[2017-10-28] MEDS: LISINOPRIL 5 MG TABLET PO SCH (11:08)
[2017-10-28] MEDS: amLODIPine 5 MG TABLET PO SCH (11:09)
[2017-10-28] MEDS: PANTOPRAZOLE 40 MG TABLET PO SCH (11:09)
[2017-10-28] MEDS: ASPIRIN EC 81 MG TABLET PO SCH (11:09)
[2017-10-28] MEDS ORDERED: MORPHINE 4 MG/1 ML VIAL IV PRN (11:17)
[2017-10-28] MEDS: cefTRIAXone 1,000 MG in SYRINGE 1 EACH IV SCH (11:23)
[2017-10-28] MEDS: AZITHROMYCIN INJ 500 MG in SODIUM CHLORIDE 0.9% 250 ML IV SCH (11:24)
[2017-10-28 11:28] VITALS: BP 183/85
== END 2017-10-28 14:12 | disposition home or self-care (01) | DRG 139 ==
LOC: N.2E 04:27 → SUATTDRO 04:27
PROVIDERS: ADMIT Internal Medicine; ATTEND Hospitalist

== ENCOUNTER 2019-12-14 15:46 | Observation (INO) ==
[2019-12-14] MEDS ORDERED: ASPIRIN 325 MG TABLET PO STA (16:23)
[2019-12-14] MEDS ORDERED: NITROGLYCERIN SL 0.4 MG TABLET SL PRN (16:23)
[2019-12-14 17:18] LABS: Basophils % 0.4 % (0.0-0.8); Eosinophils # 0.1 10*3/uL (0.0-0.87); Eosinophils % 2.7 % (0.00-10.9); Hematocrit 34.9 VOL% (42.0-52.0); Hemoglobin 11.1 GM/DL (14.0-18.0); Immature Granulocytes % 0.4 %; Immature Granulocytes Absolute 0.02 #; Lymphocytes # 0.8 10*3/uL (1.4-4.0); Lymphocytes % 15.3 % (21.2-54.2); Mean Corpuscular HGB Conc 31.8 GM/DL (32-36); Mean Corpuscular Volume 93.3 FL (87-102); Mean Platelet Volume 10.6 FL (9.6-12.0); Monocytes % 14.3 % (1.7-12.7); Neutrophils % 66.9 % (38.7-73.9); Platelet Count 168 T/CUMM (130-400); Red Blood Count 3.74 MC/CUMM (3.8-5.5); Red Cell Distribution Width 19.3 % (9.3-17.3); White Blood Count 5.1 T/CUMM (4-12)
[2019-12-14 17:30] LABS: Osmolality,Calculated 276.2 MOS/KG (273-304)
[2019-12-14] MEDS ORDERED: DEXTROSE 50% 25 GM/50 ML VIAL IV PRN (18:11)
[2019-12-14] MEDS ORDERED: ONDANSETRON 4 MG/2 ML VIAL IV PRN (18:11)
[2019-12-14] MEDS ORDERED: GLUCAGON 1 MG VIAL IM PRN ×2 (18:11)
[2019-12-14] MEDS ORDERED: DEXTROSE 10% 250 ML BAG IV PRN (18:11)
[2019-12-14] MEDS ORDERED: ACETAMINOPHEN 325 MG TABLET PO PRN (18:11)
[2019-12-14] MEDS ORDERED: ALBUTEROL 2.5 MG/3 ML NEB RESP TX PRN (18:24)
[2019-12-14] MEDS ORDERED: NICOTINE 14 MG/24 HR PATCH TRANSDERM PRN (18:33)
[2019-12-14] MEDS ORDERED: PNEUMOCOCCAL VACCINE (13 VALENT) 0.5 ML SYRINGE IM ONE (22:28)
[2019-12-14] MEDS: INSULIN LISPRO 100 UNIT/ML SUBCUT SCH (22:31)
[2019-12-14] MEDS: carvediloL 12.5 MG TABLET PO SCH (22:49)
[2019-12-14] MEDS: ENOXAPARIN 30 MG/0.3 ML SYRINGE SUBCUT SCH (22:49)
[2019-12-15 05:28] LABS: Basophils % 0.4 % (0.0-0.8); Eosinophils # 0.2 10*3/uL (0.0-0.87); Eosinophils % 3.6 % (0.00-10.9); Hematocrit 32.1 VOL% (42.0-52.0); Hemoglobin 10.2 GM/DL (14.0-18.0); Immature Granulocytes % 0.4 %; Immature Granulocytes Absolute 0.02 #; Lymphocytes # 0.7 10*3/uL (1.4-4.0); Lymphocytes % 14.1 % (21.2-54.2); Mean Corpuscular HGB Conc 31.8 GM/DL (32-36); Mean Corpuscular Volume 92.8 FL (87-102); Mean Platelet Volume 10.9 FL (9.6-12.0); Monocytes % 12.9 % (1.7-12.7); Neutrophils % 68.6 % (38.7-73.9); Platelet Count 161 T/CUMM (130-400); Red Blood Count 3.46 MC/CUMM (3.8-5.5); Red Cell Distribution Width 19.4 % (9.3-17.3); White Blood Count 5.3 T/CUMM (4-12)
[2019-12-15 06:31] LABS: Calcium 8.2 MG/DL (8.5-10.1); Osmolality,Calculated 277.5 MOS/KG (273-304)
[2019-12-15] MEDS ORDERED: amLODIPine 2.5 MG TABLET PO SCH (09:00)
[2019-12-15] MEDS: INSULIN LISPRO 100 UNIT/ML SUBCUT SCH ×4 (09:27→20:48)
[2019-12-15] MEDS: ATORVASTATIN 40 MG TABLET PO SCH (09:28)
[2019-12-15] MEDS: carvediloL 12.5 MG TABLET PO SCH ×2 (09:28→20:48)
[2019-12-15] MEDS: calcitrioL 0.25 MCG CAPSULE PO SCH (09:28)
[2019-12-15] MEDS: FUROSEMIDE 40 MG TABLET PO SCH (09:28)
[2019-12-15] MEDS: SEVELAMER CARBONATE 800 MG TABLET PO SCH ×3 (09:28→17:54)
[2019-12-15] MEDS ORDERED: amLODIPine 2.5 MG TABLET PO ONE (12:11)
[2019-12-15] MEDS ORDERED: amLODIPine 5 MG TABLET PO SCH (12:12)
[2019-12-15] MEDS: ASPIRIN EC 81 MG TABLET PO SCH (12:27)
[2019-12-15] MEDS: CLOPIDOGREL 75 MG TABLET PO SCH (12:27)
[2019-12-15] MEDS: ISOSORBIDE DINITRATE 20 MG TABLET PO SCH (12:27)
[2019-12-15 12:40] LABS: CKMB % 6.7 %; Troponin I < 0.015 NG/ML (0.00-0.045)
[2019-12-15] MEDS: PANTOPRAZOLE 40 MG TABLET PO SCH (12:51)
[2019-12-15] MEDS: ENOXAPARIN 30 MG/0.3 ML SYRINGE SUBCUT SCH (20:48)
[2019-12-16 05:32] LABS: Basophils % 0.4 % (0.0-0.8); Eosinophils # 0.2 10*3/uL (0.0-0.87); Eosinophils % 3.2 % (0.00-10.9); Hematocrit 31.5 VOL% (42.0-52.0); Hemoglobin 10.1 GM/DL (14.0-18.0); Immature Granulocytes % 0.2 %; Immature Granulocytes Absolute 0.01 #; Lymphocytes # 0.8 10*3/uL (1.4-4.0); Lymphocytes % 16.2 % (21.2-54.2); Mean Corpuscular HGB Conc 32.1 GM/DL (32-36); Mean Corpuscular Volume 92.1 FL (87-102); Mean Platelet Volume 11.1 FL (9.6-12.0); Monocytes % 13.6 % (1.7-12.7); Neutrophils % 66.4 % (38.7-73.9); Platelet Count 147 T/CUMM (130-400); Red Blood Count 3.42 MC/CUMM (3.8-5.5); Red Cell Distribution Width 19.2 % (9.3-17.3)
[2019-12-16 05:43] LABS: Calcium 7.8 MG/DL (8.5-10.1); Osmolality,Calculated 274.7 MOS/KG (273-304)
[2019-12-16 05:48] LABS: Albumin 2.3 G/DL (3.4-5.0); Bilirubin,Direct 0.59 MG/DL (0.0-0.20); Bilirubin,Indirect 0.7 MG/DL (0.0-1.0); Bilirubin,Total 1.3 MG/DL (0.2-1.0); Total Protein 6.9 G/DL (6.4-8.3)
[2019-12-16 08:27] VITALS: BP 154/68
[2019-12-16] MEDS: INSULIN LISPRO 100 UNIT/ML SUBCUT SCH (09:27)
[2019-12-16] MEDS: SEVELAMER CARBONATE 800 MG TABLET PO SCH (09:28)
[2019-12-16] MEDS: calcitrioL 0.25 MCG CAPSULE PO SCH (09:28)
[2019-12-16] MEDS: CLOPIDOGREL 75 MG TABLET PO SCH (09:29)
[2019-12-16] MEDS: ATORVASTATIN 40 MG TABLET PO SCH (09:29)
[2019-12-16] MEDS: PANTOPRAZOLE 40 MG TABLET PO SCH (09:29)
[2019-12-16] MEDS: FUROSEMIDE 40 MG TABLET PO SCH (09:29)
[2019-12-16] MEDS: carvediloL 12.5 MG TABLET PO SCH (09:29)
[2019-12-16] MEDS: ASPIRIN EC 81 MG TABLET PO SCH (09:29)
[2019-12-16] MEDS: ISOSORBIDE DINITRATE 20 MG TABLET PO SCH (09:29)
== END 2019-12-16 12:40 | disposition home or self-care (01) ==
LOC: EDUNIT# → EDBD → N.EDINP 15:46 → N.ED 15:46 → SUATTDRO 18:11 → N.ICU 19:37 → N.TELEN 19:54
PROVIDERS: ADMIT Internal Medicine Cardiovascular Disease; ATTEND Family Medicine

== ENCOUNTER 2022-09-08 17:12 | Inpatient (IN) ==
[2022-09-08 19:30] LABS: Basophils % 0.4 % (0.0-0.8); Eosinophils # 0.1 10*3/uL (0.0-0.87); Eosinophils % 2.1 % (0.00-10.9); Hematocrit 30.9 VOL% (42.0-52.0); Immature Granulocytes % 0.5 %; Immature Granulocytes Absolute 0.03 #; Lymphocytes # 0.7 10*3/uL (1.4-4.0); Lymphocytes % 12.4 % (21.2-54.2); Mean Corpuscular HGB Conc 32.4 GM/DL (32-36); Mean Corpuscular Volume 103.7 FL (87-102); Mean Platelet Volume 10.7 FL (9.6-12.0); Monocytes # 0.8 10*3/uL (0.11-0.8); Monocytes % 14.7 % (1.7-12.7); Neutrophils % 69.9 % (38.7-73.9); Platelet Count 103 T/CUMM (130-400); Red Blood Count 2.98 MC/CUMM (3.8-5.5); Red Cell Distribution Width 14.1 % (9.3-17.3); White Blood Count 5.66 T/CUMM (4-12)
[2022-09-08 19:45] LABS: INR 1.1; Partial Thromboplastin Time 31.3 SECS (23.7-32.9)
[2022-09-08 19:46] LABS: Albumin 3.4 G/DL (3.4-5.0); Bilirubin,Total 0.9 MG/DL (0.20-1.00); Calcium 8.9 MG/DL (8.5-10.1); Osmolality,Calculated 278.1 MOS/KG (273-304); Potassium 4.2 MMOL/L (3.5-5.1); Total Protein 7.5 G/DL (6.4-8.2)
[2022-09-08] MEDS ORDERED: MORPHINE 2 MG/1 ML SYRINGE IV STA (20:35)
[2022-09-08] MEDS ORDERED: NITROGLYCERIN SL 0.4 MG TABLET SL PRN (23:05)
[2022-09-09] MEDS: ONDANSETRON 4 MG/2 ML VIAL IV PRN (01:34)
[2022-09-09] MEDS: MORPHINE 2 MG/1 ML SYRINGE IV PRN ×3 (01:35→16:22)
[2022-09-09 06:21] LABS: Albumin 3.2 G/DL (3.4-5.0); Bilirubin,Total 1.1 MG/DL (0.20-1.00); Calcium 8.4 MG/DL (8.5-10.1); Osmolality,Calculated 282.8 MOS/KG (273-304); Potassium 4.5 MMOL/L (3.5-5.1); Total Protein 7.9 G/DL (6.4-8.2)
[2022-09-09 06:42] LABS: Basophils % 0.2 % (0.0-0.8); Eosinophils # 0.2 10*3/uL (0.0-0.87); Eosinophils % 3.3 % (0.00-10.9); Hematocrit 32.2 VOL% (42.0-52.0); Hemoglobin 10.3 GM/DL (14.0-18.0); Immature Granulocytes % 0.5 %; Immature Granulocytes Absolute 0.03 #; Lymphocytes # 0.8 10*3/uL (1.4-4.0); Lymphocytes % 14.6 % (21.2-54.2); Mean Corpuscular Volume 105.9 FL (87-102); Mean Platelet Volume 10.7 FL (9.6-12.0); Monocytes # 0.8 10*3/uL (0.11-0.8); Monocytes % 15.2 % (1.7-12.7); Neutrophils % 66.2 % (38.7-73.9); Platelet Count 102 T/CUMM (130-400); Red Blood Count 3.04 MC/CUMM (3.8-5.5); Red Cell Distribution Width 14.5 % (9.3-17.3); White Blood Count 5.47 T/CUMM (4-12)
[2022-09-09] MEDS ORDERED: VANCOMYCIN INJ 750 MG in SODIUM CHLORIDE 0.9% 250 ML IV PRN (09:10)
[2022-09-09] MEDS: ISOSORBIDE MONONITRATE 30 MG TABLET PO SCH (09:42)
[2022-09-09] MEDS: PANTOPRAZOLE 40 MG TABLET PO SCH (09:42)
[2022-09-09] MEDS: lisinopriL 10 MG TABLET PO SCH (09:42)
[2022-09-09] MEDS: FUROSEMIDE 40 MG TABLET PO SCH (09:42)
[2022-09-09] MEDS: HEPARIN 5,000 UNIT/1 ML VIAL SUBCUT SCH ×2 (09:42→16:21)
[2022-09-09] MEDS: amLODIPine 2.5 MG TABLET PO SCH (09:42)
[2022-09-09] MEDS: carvediloL 12.5 MG TABLET PO SCH ×2 (09:42→16:21)
[2022-09-09] MEDS: CLOPIDOGREL 75 MG TABLET PO SCH (09:52)
[2022-09-09] MEDS: ASPIRIN EC 81 MG TABLET PO SCH (09:52)
[2022-09-09] MEDS: sitaGLIPtin 25 MG TABLET PO SCH (09:52)
[2022-09-09] MEDS ORDERED: VANCOMYCIN INJ 2,000 MG in SODIUM CHLORIDE 0.9% 500 ML IV ONE (10:00)
[2022-09-09] MEDS: ASCORBIC ACID 500 MG TABLET PO SCH ×2 (12:53→20:28)
[2022-09-09] MEDS ORDERED: REGADENOSON 0.4 MG/5 ML SYRINGE IV ONE (13:52)
[2022-09-09] MEDS: SIMVASTATIN 40 MG TABLET PO SCH (20:28)
[2022-09-10] MEDS: HEPARIN 5,000 UNIT/1 ML VIAL SUBCUT SCH ×3 (00:25→17:08)
[2022-09-10 05:23] LABS: Basophils % 0.4 % (0.0-0.8); Eosinophils # 0.1 10*3/uL (0.0-0.87); Eosinophils % 1.2 % (0.00-10.9); Hematocrit 28.8 VOL% (42.0-52.0); Hemoglobin 9.2 GM/DL (14.0-18.0); Immature Granulocytes % 0.3 %; Immature Granulocytes Absolute 0.02 #; Lymphocytes # 0.9 10*3/uL (1.4-4.0); Lymphocytes % 12.5 % (21.2-54.2); Mean Corpuscular HGB Conc 31.9 GM/DL (32-36); Mean Corpuscular Volume 106.3 FL (87-102); Mean Platelet Volume 10.7 FL (9.6-12.0); Monocytes % 14.2 % (1.7-12.7); Neutrophils % 71.4 % (38.7-73.9); Platelet Count 94 T/CUMM (130-400); Red Blood Count 2.71 MC/CUMM (3.8-5.5); Red Cell Distribution Width 14.6 % (9.3-17.3); White Blood Count 6.89 T/CUMM (4-12)
[2022-09-10 05:47] LABS: Calcium 7.9 MG/DL (8.5-10.1); Osmolality,Calculated 282.7 MOS/KG (273-304); Potassium 5.2 MMOL/L (3.5-5.1); Risk Ratio 2.1; Thyroid Stimulating Hormone 1.56 uIU/ml (0.358-3.74); VLDL Cholesterol 16.6 MG/DL
[2022-09-10 06:05] LABS: Platelet Estimate Decreased
[2022-09-10 07:23] LABS: Arterial Base Excess iSTAT 6 MMOL/L (-2.5-2.5); Arterial Bicarbonate iSTAT 30.8 MMOL/L (20-26); Arterial O2 Saturation iSTAT 92 % (95-100); Arterial PCO2 iSTAT 45 MM HG (35-48); Arterial PO2 iSTAT 60 MM HG (80-95); Arterial Total CO2 iSTAT 32 MMO/L (23-27); Arterial pH iSTAT 7.447 (7.35-7.45)
[2022-09-10] MEDS: LACTULOSE 20 GM/30 ML UDCUP PO SCH ×3 (07:24→17:27)
[2022-09-10] MEDS: ASPIRIN EC 81 MG TABLET PO SCH (09:55)
[2022-09-10] MEDS: ISOSORBIDE MONONITRATE 30 MG TABLET PO SCH (09:55)
[2022-09-10] MEDS: carvediloL 12.5 MG TABLET PO SCH ×2 (09:55→17:08)
[2022-09-10] MEDS: CLOPIDOGREL 75 MG TABLET PO SCH (09:56)
[2022-09-10] MEDS: FUROSEMIDE 40 MG TABLET PO SCH (09:56)
[2022-09-10] MEDS: lisinopriL 10 MG TABLET PO SCH (09:56)
[2022-09-10] MEDS: sitaGLIPtin 25 MG TABLET PO SCH (09:56)
[2022-09-10] MEDS: PANTOPRAZOLE 40 MG TABLET PO SCH (09:56)
[2022-09-10] MEDS: amLODIPine 2.5 MG TABLET PO SCH (09:56)
[2022-09-10] MEDS: ASCORBIC ACID 500 MG TABLET PO SCH ×2 (09:56→20:32)
[2022-09-10] MEDS: SIMVASTATIN 40 MG TABLET PO SCH (20:32)
[2022-09-11] MEDS: HEPARIN 5,000 UNIT/1 ML VIAL SUBCUT SCH ×3 (00:38→17:10)
[2022-09-11] MEDS: LACTULOSE 20 GM/30 ML UDCUP PO SCH ×5 (00:38→23:42)
[2022-09-11 05:17] LABS: Basophils % 0.3 % (0.0-0.8); Eosinophils # 0.2 10*3/uL (0.0-0.87); Eosinophils % 2.6 % (0.00-10.9); Hemoglobin 9.4 GM/DL (14.0-18.0); Immature Granulocytes % 0.6 %; Immature Granulocytes Absolute 0.04 #; Lymphocytes # 0.9 10*3/uL (1.4-4.0); Lymphocytes % 11.7 % (21.2-54.2); Mean Corpuscular HGB Conc 32.4 GM/DL (32-36); Mean Corpuscular Volume 106.6 FL (87-102); Mean Platelet Volume 10.7 FL (9.6-12.0); Monocytes % 13.4 % (1.7-12.7); Neutrophils % 71.4 % (38.7-73.9); Platelet Count 103 T/CUMM (130-400); Red Blood Count 2.72 MC/CUMM (3.8-5.5); Red Cell Distribution Width 14.6 % (9.3-17.3); White Blood Count 7.25 T/CUMM (4-12)
[2022-09-11 06:32] LABS: Calcium 7.9 MG/DL (8.5-10.1); Osmolality,Calculated 280.4 MOS/KG (273-304); Potassium 4.4 MMOL/L (3.5-5.1)
[2022-09-11] MEDS: amLODIPine 2.5 MG TABLET PO SCH (08:37)
[2022-09-11] MEDS: sitaGLIPtin 25 MG TABLET PO SCH (08:37)
[2022-09-11] MEDS: ASCORBIC ACID 500 MG TABLET PO SCH ×2 (08:37→20:59)
[2022-09-11] MEDS: ISOSORBIDE MONONITRATE 30 MG TABLET PO SCH (08:37)
[2022-09-11] MEDS: carvediloL 12.5 MG TABLET PO SCH ×2 (08:37→17:10)
[2022-09-11] MEDS: PANTOPRAZOLE 40 MG TABLET PO SCH (08:37)
[2022-09-11] MEDS: CLOPIDOGREL 75 MG TABLET PO SCH (08:38)
[2022-09-11] MEDS: lisinopriL 10 MG TABLET PO SCH (08:38)
[2022-09-11] MEDS: ASPIRIN EC 81 MG TABLET PO SCH (08:38)
[2022-09-11] MEDS: FUROSEMIDE 40 MG TABLET PO SCH (08:38)
[2022-09-11] MEDS ORDERED: EPOETIN ALFA-EPBX 4,000 UNIT/ML VIAL IV PRN (12:38)
[2022-09-11] MEDS: SIMVASTATIN 40 MG TABLET PO SCH (20:59)
[2022-09-12] MEDS: HEPARIN 5,000 UNIT/1 ML VIAL SUBCUT SCH ×3 (00:05→17:01)
[2022-09-12] MEDS: LACTULOSE 20 GM/30 ML UDCUP PO SCH ×3 (05:10→17:01)
[2022-09-12 05:28] LABS: Basophils % 0.1 % (0.0-0.8); Eosinophils # 0.1 10*3/uL (0.0-0.87); Eosinophils % 1.4 % (0.00-10.9); Hematocrit 26.6 VOL% (42.0-52.0); Hemoglobin 8.8 GM/DL (14.0-18.0); Immature Granulocytes % 0.7 %; Immature Granulocytes Absolute 0.05 #; Lymphocytes # 0.7 10*3/uL (1.4-4.0); Lymphocytes % 9.5 % (21.2-54.2); Mean Corpuscular HGB Conc 33.1 GM/DL (32-36); Mean Corpuscular Volume 104.3 FL (87-102); Monocytes % 12.5 % (1.7-12.7); Neutrophils % 75.8 % (38.7-73.9); Platelet Count 104 T/CUMM (130-400); Red Blood Count 2.55 MC/CUMM (3.8-5.5); Red Cell Distribution Width 14.4 % (9.3-17.3); White Blood Count 7.65 T/CUMM (4-12)
[2022-09-12 05:52] LABS: Calcium 7.8 MG/DL (8.5-10.1); Osmolality,Calculated 275.9 MOS/KG (273-304); Potassium 4.3 MMOL/L (3.5-5.1)
[2022-09-12 06:09] LABS: Anisocytosis 1+; Burr Cells Few; Platelet Estimate Adequate
[2022-09-12 06:10] LABS: Macrocytosis Slight
[2022-09-12] MEDS: ASPIRIN EC 81 MG TABLET PO SCH (08:39)
[2022-09-12] MEDS: amLODIPine 2.5 MG TABLET PO SCH (08:39)
[2022-09-12] MEDS: lisinopriL 10 MG TABLET PO SCH (08:39)
[2022-09-12] MEDS: PANTOPRAZOLE 40 MG TABLET PO SCH (08:39)
[2022-09-12] MEDS: ISOSORBIDE MONONITRATE 30 MG TABLET PO SCH (08:39)
[2022-09-12] MEDS: sitaGLIPtin 25 MG TABLET PO SCH (08:40)
[2022-09-12] MEDS: carvediloL 12.5 MG TABLET PO SCH (08:40)
[2022-09-12] MEDS: ASCORBIC ACID 500 MG TABLET PO SCH ×2 (08:40→20:39)
[2022-09-12] MEDS: CLOPIDOGREL 75 MG TABLET PO SCH (08:40)
[2022-09-12] MEDS: FUROSEMIDE 40 MG TABLET PO SCH (08:40)
[2022-09-12] MEDS: PIPERACILLIN/TAZOBACTAM 3,375 MG in SODIUM CHLORIDE 0.9% 100 ML IV SCH ×2 (12:26→22:29)
[2022-09-12] MEDS: carvediloL 6.25 MG TABLET PO SCH (17:00)
[2022-09-12] MEDS: SIMVASTATIN 40 MG TABLET PO SCH (20:39)
[2022-09-13] MEDS: LACTULOSE 20 GM/30 ML UDCUP PO SCH ×5 (00:12→23:36)
[2022-09-13] MEDS: HEPARIN 5,000 UNIT/1 ML VIAL SUBCUT SCH ×3 (00:13→17:00)
[2022-09-13] MEDS ORDERED: HYDROmorphone 1 MG/1 ML SYRINGE IV PRN (04:40)
[2022-09-13 05:23] LABS: Basophils % 0.1 % (0.0-0.8); Eosinophils # 0.1 10*3/uL (0.0-0.87); Eosinophils % 1.5 % (0.00-10.9); Hematocrit 25.8 VOL% (42.0-52.0); Hemoglobin 8.7 GM/DL (14.0-18.0); Immature Granulocytes % 0.5 %; Immature Granulocytes Absolute 0.04 #; Lymphocytes # 0.6 10*3/uL (1.4-4.0); Lymphocytes % 7.4 % (21.2-54.2); Mean Corpuscular HGB Conc 33.7 GM/DL (32-36); Mean Corpuscular Volume 101.2 FL (87-102); Mean Platelet Volume 11.1 FL (9.6-12.0); Monocytes # 0.8 10*3/uL (0.11-0.8); Monocytes % 10.8 % (1.7-12.7); Neutrophils % 79.7 % (38.7-73.9); Platelet Count 102 T/CUMM (130-400); Red Blood Count 2.55 MC/CUMM (3.8-5.5); Red Cell Distribution Width 14.3 % (9.3-17.3)
[2022-09-13 05:41] LABS: Calcium 7.5 MG/DL (8.5-10.1); Osmolality,Calculated 279.2 MOS/KG (273-304); Potassium 4.9 MMOL/L (3.5-5.1)
[2022-09-13] MEDS: carvediloL 6.25 MG TABLET PO SCH ×2 (07:49→17:00)
[2022-09-13] MEDS: ASCORBIC ACID 500 MG TABLET PO SCH ×2 (11:12→21:18)
[2022-09-13] MEDS: amLODIPine 2.5 MG TABLET PO SCH (13:47)
[2022-09-13] MEDS: sitaGLIPtin 25 MG TABLET PO SCH (13:47)
[2022-09-13] MEDS: ISOSORBIDE MONONITRATE 30 MG TABLET PO SCH (13:47)
[2022-09-13] MEDS: ASPIRIN EC 81 MG TABLET PO SCH (13:47)
[2022-09-13] MEDS: CLOPIDOGREL 75 MG TABLET PO SCH (13:47)
[2022-09-13] MEDS: FUROSEMIDE 40 MG TABLET PO SCH (13:47)
[2022-09-13] MEDS: PANTOPRAZOLE 40 MG TABLET PO SCH (13:48)
[2022-09-13] MEDS: lisinopriL 10 MG TABLET PO SCH (13:48)
[2022-09-13 15:13] LABS: Calcium 7.6 MG/DL (8.5-10.1); Osmolality,Calculated 277.5 MOS/KG (273-304); Potassium 3.7 MMOL/L (3.5-5.1)
[2022-09-13] MEDS: PIPERACILLIN/TAZOBACTAM 3,375 MG in SODIUM CHLORIDE 0.9% 100 ML IV SCH ×2 (16:10→23:36)
[2022-09-13] MEDS: SIMVASTATIN 40 MG TABLET PO SCH (21:18)
[2022-09-14] MEDS: HEPARIN 5,000 UNIT/1 ML VIAL SUBCUT SCH ×3 (00:51→17:41)
[2022-09-14 04:47] LABS: Basophils % 0.3 % (0.0-0.8); Eosinophils # 0.1 10*3/uL (0.0-0.87); Eosinophils % 0.9 % (0.00-10.9); Hematocrit 25.1 VOL% (42.0-52.0); Hemoglobin 8.3 GM/DL (14.0-18.0); Immature Granulocytes % 0.8 %; Immature Granulocytes Absolute 0.06 #; Lymphocytes # 0.5 10*3/uL (1.4-4.0); Lymphocytes % 6.2 % (21.2-54.2); Mean Corpuscular HGB Conc 33.1 GM/DL (32-36); Monocytes # 0.9 10*3/uL (0.11-0.8); Monocytes % 12.5 % (1.7-12.7); Neutrophils % 79.3 % (38.7-73.9); Platelet Count 115 T/CUMM (130-400); Red Blood Count 2.46 MC/CUMM (3.8-5.5); Red Cell Distribution Width 14.4 % (9.3-17.3); White Blood Count 7.45 T/CUMM (4-12)
[2022-09-14] MEDS: LACTULOSE 20 GM/30 ML UDCUP PO SCH ×4 (05:02→23:55)
[2022-09-14 05:17] LABS: Calcium 7.9 MG/DL (8.5-10.1); Osmolality,Calculated 279.5 MOS/KG (273-304)
[2022-09-14] MEDS: ACETAMINOPHEN 325 MG TABLET PO PRN (08:06)
[2022-09-14] MEDS: PIPERACILLIN/TAZOBACTAM 3,375 MG in SODIUM CHLORIDE 0.9% 100 ML IV SCH ×2 (10:05→23:55)
[2022-09-14] MEDS: PANTOPRAZOLE 40 MG TABLET PO SCH (10:06)
[2022-09-14] MEDS: sitaGLIPtin 25 MG TABLET PO SCH (10:06)
[2022-09-14] MEDS: ISOSORBIDE MONONITRATE 30 MG TABLET PO SCH (10:06)
[2022-09-14] MEDS: FUROSEMIDE 40 MG TABLET PO SCH (10:06)
[2022-09-14] MEDS: ASPIRIN EC 81 MG TABLET PO SCH (10:06)
[2022-09-14] MEDS: CLOPIDOGREL 75 MG TABLET PO SCH (10:06)
[2022-09-14] MEDS: carvediloL 6.25 MG TABLET PO SCH ×2 (10:06→17:50)
[2022-09-14] MEDS: ASCORBIC ACID 500 MG TABLET PO SCH ×2 (10:06→20:57)
[2022-09-14] MEDS: amLODIPine 2.5 MG TABLET PO SCH (10:07)
[2022-09-14] MEDS: lisinopriL 10 MG TABLET PO SCH (10:07)
[2022-09-14] MEDS: SIMVASTATIN 40 MG TABLET PO SCH (20:57)
[2022-09-15] MEDS: HEPARIN 5,000 UNIT/1 ML VIAL SUBCUT SCH ×3 (00:23→16:35)
[2022-09-15] MEDS: ACETAMINOPHEN 325 MG TABLET PO PRN (00:23)
[2022-09-15] MEDS: LACTULOSE 20 GM/30 ML UDCUP PO SCH ×3 (05:03→17:58)
[2022-09-15 05:58] LABS: Basophils % 0.1 % (0.0-0.8); Eosinophils # 0.1 10*3/uL (0.0-0.87); Eosinophils % 1.5 % (0.00-10.9); Hematocrit 25.4 VOL% (42.0-52.0); Hemoglobin 8.3 GM/DL (14.0-18.0); Immature Granulocytes % 0.9 %; Immature Granulocytes Absolute 0.07 #; Lymphocytes # 0.6 10*3/uL (1.4-4.0); Lymphocytes % 7.5 % (21.2-54.2); Mean Corpuscular HGB Conc 32.7 GM/DL (32-36); Mean Corpuscular Volume 102.8 FL (87-102); Mean Platelet Volume 10.6 FL (9.6-12.0); Monocytes # 0.9 10*3/uL (0.11-0.8); Monocytes % 11.3 % (1.7-12.7); Neutrophils % 78.7 % (38.7-73.9); Platelet Count 129 T/CUMM (130-400); Red Blood Count 2.47 MC/CUMM (3.8-5.5); Red Cell Distribution Width 14.6 % (9.3-17.3); White Blood Count 7.95 T/CUMM (4-12)
[2022-09-15 06:18] LABS: Calcium 7.6 MG/DL (8.5-10.1); Osmolality,Calculated 278.8 MOS/KG (273-304); Potassium 4.3 MMOL/L (3.5-5.1)
[2022-09-15] MEDS: PANTOPRAZOLE 40 MG TABLET PO SCH (09:34)
[2022-09-15] MEDS: amLODIPine 2.5 MG TABLET PO SCH (09:34)
[2022-09-15] MEDS: sitaGLIPtin 25 MG TABLET PO SCH (09:34)
[2022-09-15] MEDS: ASPIRIN EC 81 MG TABLET PO SCH (09:34)
[2022-09-15] MEDS: ASCORBIC ACID 500 MG TABLET PO SCH ×2 (09:34→20:23)
[2022-09-15] MEDS: ISOSORBIDE MONONITRATE 30 MG TABLET PO SCH (09:34)
[2022-09-15] MEDS: CLOPIDOGREL 75 MG TABLET PO SCH (09:34)
[2022-09-15] MEDS: FUROSEMIDE 40 MG TABLET PO SCH (09:34)
[2022-09-15] MEDS: carvediloL 6.25 MG TABLET PO SCH ×2 (09:35→16:35)
[2022-09-15] MEDS: lisinopriL 10 MG TABLET PO SCH (09:38)
[2022-09-15] MEDS: SIMVASTATIN 40 MG TABLET PO SCH (20:23)
[2022-09-16] MEDS: HEPARIN 5,000 UNIT/1 ML VIAL SUBCUT SCH ×3 (00:21→17:16)
[2022-09-16] MEDS: LACTULOSE 20 GM/30 ML UDCUP PO SCH ×4 (00:21→17:16)
[2022-09-16] MEDS: ACETAMINOPHEN 325 MG TABLET PO PRN (00:45)
[2022-09-16 05:30] LABS: Basophils % 0.2 % (0.0-0.8); Eosinophils # 0.1 10*3/uL (0.0-0.87); Eosinophils % 1.2 % (0.00-10.9); Hematocrit 26.3 VOL% (42.0-52.0); Hemoglobin 8.6 GM/DL (14.0-18.0); Immature Granulocytes % 1.2 %; Immature Granulocytes Absolute 0.11 #; Lymphocytes # 0.7 10*3/uL (1.4-4.0); Lymphocytes % 7.3 % (21.2-54.2); Mean Corpuscular HGB Conc 32.7 GM/DL (32-36); Mean Platelet Volume 11.1 FL (9.6-12.0); Monocytes % 10.6 % (1.7-12.7); Neutrophils % 79.5 % (38.7-73.9); Platelet Count 142 T/CUMM (130-400); Red Blood Count 2.53 MC/CUMM (3.8-5.5); Red Cell Distribution Width 14.8 % (9.3-17.3); White Blood Count 9.33 T/CUMM (4-12)
[2022-09-16 05:53] LABS: Calcium 7.9 MG/DL (8.5-10.1); Osmolality,Calculated 276.4 MOS/KG (273-304); Potassium 4.1 MMOL/L (3.5-5.1)
[2022-09-16] MEDS: carvediloL 6.25 MG TABLET PO SCH ×2 (09:54→17:16)
[2022-09-16] MEDS: ASPIRIN EC 81 MG TABLET PO SCH (09:54)
[2022-09-16] MEDS: FUROSEMIDE 40 MG TABLET PO SCH (09:54)
[2022-09-16] MEDS: sitaGLIPtin 25 MG TABLET PO SCH (09:54)
[2022-09-16] MEDS: lisinopriL 10 MG TABLET PO SCH (09:54)
[2022-09-16] MEDS: PANTOPRAZOLE 40 MG TABLET PO SCH (09:54)
[2022-09-16] MEDS: ISOSORBIDE MONONITRATE 30 MG TABLET PO SCH (09:54)
[2022-09-16] MEDS: amLODIPine 2.5 MG TABLET PO SCH (09:54)
[2022-09-16] MEDS: CLOPIDOGREL 75 MG TABLET PO SCH (09:54)
[2022-09-16] MEDS: ASCORBIC ACID 500 MG TABLET PO SCH ×2 (09:54→21:05)
[2022-09-16] MEDS: SIMVASTATIN 40 MG TABLET PO SCH (21:06)
[2022-09-17] MEDS: LACTULOSE 20 GM/30 ML UDCUP PO SCH ×4 (00:58→17:24)
[2022-09-17] MEDS: HEPARIN 5,000 UNIT/1 ML VIAL SUBCUT SCH ×3 (00:59→17:24)
[2022-09-17 04:46] LABS: Basophils % 0.2 % (0.0-0.8); Eosinophils # 0.1 10*3/uL (0.0-0.87); Eosinophils % 1.1 % (0.00-10.9); Hematocrit 25.3 VOL% (42.0-52.0); Hemoglobin 8.1 GM/DL (14.0-18.0); Immature Granulocytes % 1.2 %; Immature Granulocytes Absolute 0.13 #; Lymphocytes # 0.6 10*3/uL (1.4-4.0); Lymphocytes % 5.6 % (21.2-54.2); Mean Corpuscular Volume 105.9 FL (87-102); Mean Platelet Volume 10.5 FL (9.6-12.0); Monocytes # 1.2 10*3/uL (0.11-0.8); Neutrophils % 80.9 % (38.7-73.9); Platelet Count 165 T/CUMM (130-400); Red Blood Count 2.39 MC/CUMM (3.8-5.5); Red Cell Distribution Width 14.9 % (9.3-17.3); White Blood Count 10.45 T/CUMM (4-12)
[2022-09-17 05:06] LABS: Calcium 7.8 MG/DL (8.5-10.1); Osmolality,Calculated 274.9 MOS/KG (273-304); Potassium 4.2 MMOL/L (3.5-5.1)
[2022-09-17] MEDS: amLODIPine 2.5 MG TABLET PO SCH (08:31)
[2022-09-17] MEDS: PANTOPRAZOLE 40 MG TABLET PO SCH (08:31)
[2022-09-17] MEDS: sitaGLIPtin 25 MG TABLET PO SCH (08:32)
[2022-09-17] MEDS: carvediloL 6.25 MG TABLET PO SCH ×2 (08:32→17:24)
[2022-09-17] MEDS: ASCORBIC ACID 500 MG TABLET PO SCH ×2 (08:32→20:39)
[2022-09-17] MEDS: CLOPIDOGREL 75 MG TABLET PO SCH (08:32)
[2022-09-17] MEDS: FUROSEMIDE 40 MG TABLET PO SCH (08:32)
[2022-09-17] MEDS: ISOSORBIDE MONONITRATE 30 MG TABLET PO SCH (08:32)
[2022-09-17] MEDS: ASPIRIN EC 81 MG TABLET PO SCH (08:32)
[2022-09-17] MEDS: lisinopriL 10 MG TABLET PO SCH (10:53)
[2022-09-17] MEDS: SIMVASTATIN 40 MG TABLET PO SCH (20:39)
[2022-09-18] MEDS: LACTULOSE 20 GM/30 ML UDCUP PO SCH ×4 (00:53→17:45)
[2022-09-18] MEDS: HEPARIN 5,000 UNIT/1 ML VIAL SUBCUT SCH ×3 (00:55→17:45)
[2022-09-18 05:14] LABS: Basophils % 0.3 % (0.0-0.8); Eosinophils # 0.1 10*3/uL (0.0-0.87); Eosinophils % 0.9 % (0.00-10.9); Hematocrit 25.8 VOL% (42.0-52.0); Hemoglobin 8.3 GM/DL (14.0-18.0); Immature Granulocytes % 1.5 %; Immature Granulocytes Absolute 0.16 #; Lymphocytes # 0.6 10*3/uL (1.4-4.0); Lymphocytes % 5.9 % (21.2-54.2); Mean Corpuscular HGB Conc 32.2 GM/DL (32-36); Mean Platelet Volume 10.3 FL (9.6-12.0); Monocytes % 9.4 % (1.7-12.7); Platelet Count 194 T/CUMM (130-400); Red Blood Count 2.48 MC/CUMM (3.8-5.5); Red Cell Distribution Width 14.9 % (9.3-17.3); White Blood Count 10.55 T/CUMM (4-12)
[2022-09-18 05:30] LABS: Osmolality,Calculated 278.2 MOS/KG (273-304); Potassium 3.9 MMOL/L (3.5-5.1)
[2022-09-18] MEDS: ASCORBIC ACID 500 MG TABLET PO SCH ×2 (09:16→20:34)
[2022-09-18] MEDS: PANTOPRAZOLE 40 MG TABLET PO SCH (09:16)
[2022-09-18] MEDS: FUROSEMIDE 40 MG TABLET PO SCH (09:16)
[2022-09-18] MEDS: CLOPIDOGREL 75 MG TABLET PO SCH (09:16)
[2022-09-18] MEDS: ISOSORBIDE MONONITRATE 30 MG TABLET PO SCH (09:16)
[2022-09-18] MEDS: carvediloL 6.25 MG TABLET PO SCH ×2 (09:16→17:45)
[2022-09-18] MEDS: sitaGLIPtin 25 MG TABLET PO SCH (09:16)
[2022-09-18] MEDS: ASPIRIN EC 81 MG TABLET PO SCH (09:16)
[2022-09-18] MEDS: amLODIPine 2.5 MG TABLET PO SCH (09:16)
[2022-09-18] MEDS: lisinopriL 10 MG TABLET PO SCH (09:36)
[2022-09-18] MEDS: SIMVASTATIN 40 MG TABLET PO SCH (20:34)
[2022-09-19] MEDS: LACTULOSE 20 GM/30 ML UDCUP PO SCH ×4 (00:18→18:09)
[2022-09-19] MEDS: HEPARIN 5,000 UNIT/1 ML VIAL SUBCUT SCH ×3 (00:19→18:09)
[2022-09-19 05:21] LABS: Basophils % 0.3 % (0.0-0.8); Eosinophils # 0.1 10*3/uL (0.0-0.87); Eosinophils % 1.5 % (0.00-10.9); Hematocrit 24.8 VOL% (42.0-52.0); Hemoglobin 7.9 GM/DL (14.0-18.0); Immature Granulocytes % 1.6 %; Immature Granulocytes Absolute 0.15 #; Lymphocytes # 0.7 10*3/uL (1.4-4.0); Lymphocytes % 7.4 % (21.2-54.2); Mean Corpuscular HGB Conc 31.9 GM/DL (32-36); Mean Corpuscular Volume 103.8 FL (87-102); Mean Platelet Volume 10.3 FL (9.6-12.0); Monocytes # 0.9 10*3/uL (0.11-0.8); Monocytes % 9.2 % (1.7-12.7); Platelet Count 200 T/CUMM (130-400); Red Blood Count 2.39 MC/CUMM (3.8-5.5); Red Cell Distribution Width 15.2 % (9.3-17.3); White Blood Count 9.52 T/CUMM (4-12)
[2022-09-19 05:36] LABS: Calcium 7.8 MG/DL (8.5-10.1); Osmolality,Calculated 281.4 MOS/KG (273-304); Potassium 4.2 MMOL/L (3.5-5.1)
[2022-09-19] MEDS: lisinopriL 10 MG TABLET PO SCH (08:56)
[2022-09-19] MEDS: amLODIPine 2.5 MG TABLET PO SCH (08:56)
[2022-09-19] MEDS: ASCORBIC ACID 500 MG TABLET PO SCH ×2 (08:56→20:50)
[2022-09-19] MEDS: carvediloL 6.25 MG TABLET PO SCH ×2 (08:56→18:09)
[2022-09-19] MEDS: sitaGLIPtin 25 MG TABLET PO SCH (08:56)
[2022-09-19] MEDS: ASPIRIN EC 81 MG TABLET PO SCH (08:56)
[2022-09-19] MEDS: ISOSORBIDE MONONITRATE 30 MG TABLET PO SCH (08:56)
[2022-09-19] MEDS: PANTOPRAZOLE 40 MG TABLET PO SCH (08:56)
[2022-09-19] MEDS: FUROSEMIDE 40 MG TABLET PO SCH (08:56)
[2022-09-19] MEDS: CLOPIDOGREL 75 MG TABLET PO SCH (08:56)
[2022-09-19] MEDS: SIMVASTATIN 40 MG TABLET PO SCH (20:51)
[2022-09-20] MEDS: LACTULOSE 20 GM/30 ML UDCUP PO SCH ×4 (00:11→17:53)
[2022-09-20] MEDS: HEPARIN 5,000 UNIT/1 ML VIAL SUBCUT SCH ×3 (00:11→17:53)
[2022-09-20] MEDS: ASCORBIC ACID 500 MG TABLET PO SCH ×2 (08:32→21:46)
[2022-09-20] MEDS: sitaGLIPtin 25 MG TABLET PO SCH (08:33)
[2022-09-20] MEDS: ISOSORBIDE MONONITRATE 30 MG TABLET PO SCH (08:33)
[2022-09-20] MEDS: CLOPIDOGREL 75 MG TABLET PO SCH (08:33)
[2022-09-20] MEDS: PANTOPRAZOLE 40 MG TABLET PO SCH (08:33)
[2022-09-20] MEDS: FUROSEMIDE 40 MG TABLET PO SCH (08:33)
[2022-09-20] MEDS: ASPIRIN EC 81 MG TABLET PO SCH (08:33)
[2022-09-20] MEDS: carvediloL 6.25 MG TABLET PO SCH ×2 (08:34→17:53)
[2022-09-20 08:36] LABS: Basophils % 0.2 % (0.0-0.8); Eosinophils # 0.2 10*3/uL (0.0-0.87); Eosinophils % 1.6 % (0.00-10.9); Hematocrit 26.2 VOL% (42.0-52.0); Hemoglobin 8.3 GM/DL (14.0-18.0); Immature Granulocytes % 2.4 %; Immature Granulocytes Absolute 0.22 #; Lymphocytes # 0.6 10*3/uL (1.4-4.0); Mean Corpuscular HGB Conc 31.7 GM/DL (32-36); Mean Corpuscular Volume 103.6 FL (87-102); Mean Platelet Volume 10.2 FL (9.6-12.0); Monocytes # 0.7 10*3/uL (0.11-0.8); Monocytes % 7.3 % (1.7-12.7); Neutrophils % 82.5 % (38.7-73.9); Platelet Count 223 T/CUMM (130-400); Red Blood Count 2.53 MC/CUMM (3.8-5.5); Red Cell Distribution Width 15.4 % (9.3-17.3); White Blood Count 9.24 T/CUMM (4-12)
[2022-09-20] MEDS: lisinopriL 10 MG TABLET PO SCH (08:39)
[2022-09-20] MEDS: amLODIPine 2.5 MG TABLET PO SCH (08:39)
[2022-09-20 08:59] LABS: Osmolality,Calculated 277.9 MOS/KG (273-304); Potassium 4.5 MMOL/L (3.5-5.1)
[2022-09-20] MEDS ORDERED: TUBERCULIN SKIN TEST 0.1 ML SYRINGE INTRADERM ONE (09:30)
[2022-09-20] MEDS: SIMVASTATIN 40 MG TABLET PO SCH (21:45)
[2022-09-20] MEDS: ACETAMINOPHEN 325 MG TABLET PO PRN (21:45)
[2022-09-21] MEDS: HEPARIN 5,000 UNIT/1 ML VIAL SUBCUT SCH ×3 (00:20→16:48)
[2022-09-21] MEDS: LACTULOSE 20 GM/30 ML UDCUP PO SCH ×4 (00:21→17:45)
[2022-09-21] MEDS: lisinopriL 10 MG TABLET PO SCH (08:05)
[2022-09-21] MEDS: PANTOPRAZOLE 40 MG TABLET PO SCH (08:05)
[2022-09-21] MEDS: sitaGLIPtin 25 MG TABLET PO SCH (08:05)
[2022-09-21] MEDS: amLODIPine 2.5 MG TABLET PO SCH (08:05)
[2022-09-21] MEDS: ASPIRIN EC 81 MG TABLET PO SCH (08:05)
[2022-09-21] MEDS: FUROSEMIDE 40 MG TABLET PO SCH (08:06)
[2022-09-21] MEDS: ISOSORBIDE MONONITRATE 30 MG TABLET PO SCH (08:06)
[2022-09-21] MEDS: CLOPIDOGREL 75 MG TABLET PO SCH (08:06)
[2022-09-21] MEDS: carvediloL 6.25 MG TABLET PO SCH ×2 (08:06→16:47)
[2022-09-21] MEDS: ASCORBIC ACID 500 MG TABLET PO SCH ×2 (08:06→20:46)
[2022-09-21] MEDS: ACETAMINOPHEN 325 MG TABLET PO PRN ×3 (08:06→20:47)
[2022-09-21] MEDS: SIMVASTATIN 40 MG TABLET PO SCH (20:46)
[2022-09-22] MEDS: HEPARIN 5,000 UNIT/1 ML VIAL SUBCUT SCH ×3 (00:02→16:59)
[2022-09-22] MEDS: LACTULOSE 20 GM/30 ML UDCUP PO SCH ×4 (00:02→17:02)
[2022-09-22 05:26] LABS: Alanine Aminotransferase < 6 U/L (16-61); Alkaline Phosphatase 422 U/L (45-117); Aspartate Amino Transferase 25 U/L (0-37); Blood Urea Nitrogen 50 MG/DL (7-18); Calcium 7.8 MG/DL (8.5-10.1); Carbon Dioxide 23 MMOL/L (21-32); Chloride 98 MMOL/L (98-107); Glucose 125 MG/DL (74-106); Osmolality,Calculated 281.2 MOS/KG (273-304); Potassium 4.3 MMOL/L (3.5-5.1); Sodium 134 MMOL/L (136-145); Total Protein 6.9 G/DL (6.4-8.2)
[2022-09-22] MEDS: carvediloL 6.25 MG TABLET PO SCH ×2 (08:07→16:25)
[2022-09-22 08:22] LABS: Basophils % 0.2 % (0.0-0.8); Eosinophils # 0.1 10*3/uL (0.0-0.87); Eosinophils % 1.5 % (0.00-10.9); Hematocrit 25.1 VOL% (42.0-52.0); Immature Granulocytes % 4.3 %; Lymphocytes # 0.6 10*3/uL (1.4-4.0); Lymphocytes % 6.9 % (21.2-54.2); Mean Corpuscular HGB Conc 31.9 GM/DL (32-36); Mean Corpuscular Volume 105.5 FL (87-102); Mean Platelet Volume 10.6 FL (9.6-12.0); Monocytes # 0.6 10*3/uL (0.11-0.8); Monocytes % 6.6 % (1.7-12.7); NRBC # 0.02 10*3/uL; Neutrophils % 80.5 % (38.7-73.9); Platelet Count 239 T/CUMM (130-400); Red Blood Count 2.38 MC/CUMM (3.8-5.5); Red Cell Distribution Width 15.9 % (9.3-17.3)
[2022-09-22] MEDS: ASPIRIN EC 81 MG TABLET PO SCH (09:03)
[2022-09-22] MEDS: FUROSEMIDE 40 MG TABLET PO SCH (09:03)
[2022-09-22] MEDS: ISOSORBIDE MONONITRATE 30 MG TABLET PO SCH (09:03)
[2022-09-22] MEDS: sitaGLIPtin 25 MG TABLET PO SCH (09:03)
[2022-09-22] MEDS: amLODIPine 2.5 MG TABLET PO SCH (09:03)
[2022-09-22] MEDS: ASCORBIC ACID 500 MG TABLET PO SCH ×2 (09:03→20:10)
[2022-09-22] MEDS: lisinopriL 10 MG TABLET PO SCH (09:03)
[2022-09-22] MEDS: PANTOPRAZOLE 40 MG TABLET PO SCH (09:04)
[2022-09-22] MEDS: CLOPIDOGREL 75 MG TABLET PO SCH (09:04)
[2022-09-22 10:16] LABS: QuantiFERON-Tb Gold Pl Negative (Negative); TB2 Ag Minus Result 0 IU/mL
[2022-09-22] MEDS: ONDANSETRON 4 MG/2 ML VIAL IV PRN (20:00)
[2022-09-22] MEDS: SIMVASTATIN 40 MG TABLET PO SCH (20:10)
[2022-09-23] MEDS: LACTULOSE 20 GM/30 ML UDCUP PO SCH ×2 (00:30→05:30)
[2022-09-23] MEDS: HEPARIN 5,000 UNIT/1 ML VIAL SUBCUT SCH ×2 (01:50→09:20)
[2022-09-23 05:09] LABS: Basophils % 0.2 % (0.0-0.8); Eosinophils # 0.1 10*3/uL (0.0-0.87); Eosinophils % 1.1 % (0.00-10.9); Hemoglobin 8.4 GM/DL (14.0-18.0); Immature Granulocytes % 5.6 %; Immature Granulocytes Absolute 0.52 #; Lymphocytes # 0.5 10*3/uL (1.4-4.0); Lymphocytes % 5.7 % (21.2-54.2); Mean Corpuscular HGB Conc 31.1 GM/DL (32-36); Mean Corpuscular Volume 106.3 FL (87-102); Mean Platelet Volume 10.1 FL (9.6-12.0); Monocytes # 0.7 10*3/uL (0.11-0.8); Monocytes % 7.2 % (1.7-12.7); NRBC # 0.02 10*3/uL; Neutrophils % 80.2 % (38.7-73.9); Platelet Count 237 T/CUMM (130-400); Red Blood Count 2.54 MC/CUMM (3.8-5.5); White Blood Count 9.35 T/CUMM (4-12)
[2022-09-23 05:26] LABS: Osmolality,Calculated 272.5 MOS/KG (273-304); Potassium 4.4 MMOL/L (3.5-5.1)
[2022-09-23 05:30] LABS: Eosinophils 2 % (0-10); Hypochromia Slight; Lymphocytes 2 % (20-55); Platelet Estimate Adequate; Total Cells Counted 100
[2022-09-23 07:53] VITALS: BP 122/61
[2022-09-23] MEDS: ISOSORBIDE MONONITRATE 30 MG TABLET PO SCH (09:12)
[2022-09-23] MEDS: PANTOPRAZOLE 40 MG TABLET PO SCH (09:12)
[2022-09-23] MEDS: lisinopriL 10 MG TABLET PO SCH (09:12)
[2022-09-23] MEDS: amLODIPine 2.5 MG TABLET PO SCH (09:12)
[2022-09-23] MEDS: CLOPIDOGREL 75 MG TABLET PO SCH (09:14)
[2022-09-23] MEDS: ASCORBIC ACID 500 MG TABLET PO SCH (09:14)
[2022-09-23] MEDS: FUROSEMIDE 40 MG TABLET PO SCH (09:14)
[2022-09-23] MEDS: ASPIRIN EC 81 MG TABLET PO SCH (09:14)
[2022-09-23] MEDS: sitaGLIPtin 25 MG TABLET PO SCH (09:26)
== END 2022-09-23 11:15 | DRG 177 ==
LOC: N.ED 17:12 → N.EDINP 17:12 → SUATTDRO 21:32 → N.EDINP 23:39 → N.3E 23:50 → SUATTDRO 09-12 11:26 → N.3E 09-15 18:29
PROVIDERS: ADMIT Hospitalist; ATTEND Internal Medicine